=== PATIENT | female | born 1940 | race African-American/Black ===

== ENCOUNTER 2017-03-05 02:45 | Observation (INO) ==
[2017-03-05 03:45] LABS: ALBUMIN 4.1 g/dL (3.5-5.0); CALCIUM 7.1 mg/dL (8.8-10.2); POTASSIUM 4.3 mmol/L (3.5-5.1); TOTAL BILIRUBIN 0.5 mg/dL (0.20-1.00); TOTAL PROTEIN 7.7 g/dL (6.3-8.3)
[2017-03-05 04:09] LABS: BASO% 0.3 % (0.0-0.8); EOS# 0.27 X1000 (0.0-0.7); EOS% 4.6 % (0.0-10.0); HEMATOCRIT 31.4 % (37.0-47.0); HEMOGLOBIN 10.2 g/dL (12.0-16.0); IMM GRAN# 0.02 X1000 (0.0-0.04); IMM GRAN% 0.3 % (0.0-0.5); LYMPH# 1.51 X1000 (1.2-3.4); LYMPH% 25.7 % (20.5-51.1); MANUAL DIFF NEEDED? NO; MCH 35.5 PG (27-31); MCHC 32.5 g/dL (33-37); MCV 109.4 FL (81-99); MONO# 0.63 X1000 (0.11-0.59); MONO% 10.7 % (1.7-9.3); MPV 9.9 FL (7.4-10.4); NEUT% 58.4 % (42.2-75.2); PLT 158 X1000 (130-400); RBC 2.87 XMIL (4.2-5.4)
--- NOTE | 2017-03-05 04:17 | PROVIDER DOCUMENTATION ---
This chart was entered by Chastity Villatoro Scribe, acting as scribe for Sanjay Vo MD. HPI-Respiratory General - General Chief Complaint: Cold Symptoms Stated Complaint: SOB Time Seen by Provider: 03/05/17 02:49 Source: patient Allergies/Adverse Reactions: Patient Allergies Allergy/AdvReac Type Severity Reaction Status Date / Time morphine AdvReac "makes me Verified 02/22/16 04:59 crazy" Home Medications: Home Medication List Medication Instructions Recorded Confirmed Last Taken Type Cinacalcet HCl [Sensipar] 60 mg PO QAM 02/20/16 02/22/16 02/21/16 History Gabapentin 300 mg PO TID 02/20/16 02/22/16 02/21/16 History Insulin Aspart Prot/Insuln Asp 28 unit SQ QPM 02/20/16 02/22/16 02/21/16 History [Novolog Mix 70-30 Flexpen Syrn] Insulin Aspart Prot/Insuln Asp 38 unit SQ QAM 02/20/16 02/22/16 02/21/16 History [Novolog Mix 70-30 Flexpen Syrn] Methocarbamol [Robaxin-750] 750 mg PO BID PRN #120 tablet 02/20/16 02/22/16 Rx Metoprolol [Lopressor] 25 mg PO QAM 02/20/16 02/22/16 02/21/16 History Naproxen [Naprosyn] 500 mg PO BID #60 tablet 02/20/16 02/22/16 02/21/16 Rx Pantoprazole [Protonix] 40 mg PO QAM 02/20/16 02/22/16 02/21/16 History Sevelamer Carbonate [Renvela] 800 mg PO TID 02/20/16 02/22/16 02/21/16 History Simvastatin 40 mg PO QHS 02/20/16 02/22/16 02/21/16 History Hydrocodone/Acetaminophen [Lortab 1 each PO Q4-6H PRN PRN #20 tablet 02/22/16 Unknown Rx 10-325 mg Tablet] - History of Present Illness-Resp Nature of Presenting Problem: 76 year old F presents to the ED with a cc of shortness of breath with an onset of this afternoon. Pt states that it is worse with lying flat. Pt also c/o a cough. Severity in ED: reports: mild Onset/Duration: reports: this evening Timing: reports: still present Cough Quality/Degree: reports: mild Current Respiratory Medication Therapy: Initiated see nurses note Associated Symptoms: reports: cough, shortness of breath Similar Symptoms Previously?: No Recently seen or treated by another doctor?: No Review of Systems - Adult - REVIEW OF SYSTEMS - ADULT Constitutional: denies: chills, fever Eyes: reports: no symptoms reported Ears, Nose, Mouth & Throat: reports: no symptoms reported Cardiovascular: denies: chest pain, palpitations Respiratory: reports: cough, shortness of breath Gastrointestinal: denies: abdominal pain, nausea, vomiting Genitourinary: reports: no symptoms reported Musculoskeletal: reports: no symptoms reported Integumentary: reports: no symptoms reported Neurological: reports: no symptoms reported Psychiatric: reports: no symptoms reported Endocrine: reports: no symptoms reported Hematologic/Lymphatic: reports: no symptoms reported Allergic/Immunologic: reports: no symptoms reported All Other Systems: Reviewed and Negative Past History - Adult - PAST MEDICAL HISTORY-ADULT Review of Records: reports: Nursing Assessment Review, Medications Reviewed Major Childhood Illnesses: reports: denies history Cardiovascular: reports: denies history Respiratory: reports: sleep apnea Genitourinary: reports: dialysis Neurological: reports: denies history Endocrine/Immune: reports: Diabetes - PRIOR SURGERIES/PROCEDURES Surgical/Procedure History: reports: cholecystectomy, pacemaker, hysterectomy, indwelling device, orthopedic (extremity) - IMMUNIZATION STATUS Childhood Immunizations: See Nurse Assessment Flu Vaccine: See Nurse Assessment - FAMILY HISTORY Family History: reviewed, not pertinent - SOCIAL HISTORY Smoking: non-smoker Substance Use: none/never Alcohol Use Frequency: never Physical Exam-General - PHYSICAL EXAM-ADULT Initial Vital Signs Reviewed: Yes - CONSTITUTIONAL General Appearance: appears well, alert, no apparent distress, obese - RESPIRATORY Respiratory: chest non-tender, lungs clear, normal breath sounds - CARDIOVASCULAR Cardiovascular: normal peripheral pulses, regular rate, rhythm, no edema - SKIN Integumentary: normal color, normal turgor, warm/dry - PSYCHIATRIC Psych/Mental Status: normal mood/affect, normal thought content, normal thought process, oriented x 3 Progress - PLAN OF CARE/RESULTS Progress/Plan/Lab Results: Vital Signs - 8 hr // 02:58 Temperature 97.9 F Pulse Rate 60 Respiratory Rate 15 Blood Pressure 140/116 O2 Sat by Pulse Oximetry 100 Laboratory Results - last 24 hr 03/05/17 03/05/17 03/05/17 03:10 03:10 03:10 WBC 5.87 RBC 2.87 L Hgb 10.2 L Hct 31.4 L MCV 109.4 H MCH 35.5 H MCHC 32.5 L RDW Std Deviation 13.1 Plt Count 158 MPV 9.9 Immature Gran % (Auto) 0.3 Neut % (Auto) 58.4 Lymph % (Auto) 25.7 [place] % (Auto) 10.7 H Eos % (Auto) 4.6 Baso % (Auto) 0.3 Immature Gran # (Auto) 0.02 Neut # (Auto) 3.42 Lymph # (Auto) 1.51 [place] # (Auto) 0.63 H Eos # (Auto) 0.27 Baso # (Auto) 0.02 Sodium 144 Potassium 4.3 Chloride 99 Carbon Dioxide 31 Anion Gap 14 BUN 26 H Creatinine 6.0 H Estimated GFR/1.73 m2 8 BUN/Creatinine Ratio 4 Glucose 101 Calculated Osmolality 292 Calcium 7.1 L Total Bilirubin 0.50 AST 16 ALT 18 Alkaline Phosphatase 95 Creatine Kinase 88 Troponin T 0.150 H Total Protein 7.7 Albumin 4.1 Globulin 3.6 Albumin/Globulin Ratio 1.1 Orders Category Date Time Status CHEST-PORTABLE [RAD] Stat Exams 03/05/17 02:54 Taken CBC WITH ELECTRONIC DIFF [HEME] Stat Lab 03/05/17 03:10 Completed CK PROFILE [SP CHEM] Stat Lab 03/05/17 03:10 Completed CMP [COMPREHENSIVE METABOLIC PANEL] [CHEM] Stat Lab 03/05/17 03:10 Completed TROPONIN T Stat Lab 03/05/17 03:10 Completed EKG [EKG] Stat Ther 03/05/17 02:56 Ordered Result Diagrams: 03/05/17 03:10 03/05/17 03:10 - REASSESSMENT Reassessment #1 Time Reassessed: 04:16 (pt feels better when sitting upright. She does not make any urine. Will keep until she can get dialysis then shoulde be able to go home) Status: improving - EKG 1 Time of EKG reading by physician:: 03:15 EKG Interpretation (*Must complete 3 of following elements*): Abnormal Rate: 60 Rhythm: paced - XRAY 1 XRAY Study: Chest Impression: Abnormal (cardiomegaly, moderate fluid overload) Departure - Departure Date of Disposition Decision: 03/05/17 Time of Disposition Decision: 04:15 DIAGNOSIS: ESRD (end stage renal disease) Fluid overload Qualifiers: Hypervolemia type: other Qualified Code(s): E87.79 - Other fluid overload Disposition: ADMITTED INPATIENT 09 Certified Medical Emergency: Emergent Condition: Fair - Critical Care Note This patient required my direct & personal management of CC.: No This chart was documented by the indicated scribe, (Chastity Villatoro Scribe) and accurately reflects the services I performed and decisions made by me, Sanjay Vo MD, as attested by the provider's signature.
--- NOTE | 2017-03-05 06:14 | Diag Imaging Result Doc PS360 ---
EXAM: CHEST-PORTABLE HISTORY: sob TECHNIQUE: Portable chest COMPARISON: 07/11/2010 FINDINGS: The patient has a right-sided pacemaker. The heart remains enlarged. There are central vascular distention. No pleural effusions identified. No consolidation. IMPRESSION: Cardiomegaly with pulmonary edema. Follow-up PA and lateral recommended. Electronically signed by Bruno Gauthier 03/05/2017 6:12 AM
[2017-03-05] MEDS ORDERED: NORCO-10 PO PRN (06:26)
[2017-03-05] MEDS ORDERED: ZOFRAN IV PRN (06:28)
[2017-03-05] MEDS ORDERED: TIGHT: 0.2 ML/HR MISC PRN (06:51)
[2017-03-05] MEDS ORDERED: HEPARIN IV PRN (06:51)
[2017-03-05] MEDS ORDERED: NS 2,000 ML MISC PRN (06:51)
[2017-03-05 08:37] LABS: INR 0.98; PROTIME 10.3 Seconds (9.2-11.7); PTT 22.3 Seconds (22.0-36.0)
[2017-03-05] MEDS ORDERED: HEPARIN SUBQ SCH (09:00)
[2017-03-05] MEDS ORDERED: EPOGEN SUBQ SCH (09:00)
[2017-03-05] MEDS: NOVOLOG MIX 70/30 SUBQ SCH (09:16)
[2017-03-05] MEDS ORDERED: NS 2,000 ML ONE (11:09)
[2017-03-05] MEDS ORDERED: HEPARIN ONE (11:09)
--- NOTE | 2017-03-05 11:46 | CONSULTATION ---
DATE OF CONSULTATION: 03/05/2017 INDICATION: Elevated troponin, fluid overload. HISTORY OF PRESENT ILLNESS: Ms. Solano is a 76-year-old black female, who normally follows with Dr. Garcia. 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 She presented for evaluation of shortness of breath. She reports compliance with her dialysis sessions, but seemingly she has not been able to achieve her dry weight recently despite reportedly complete treatments. She comes in weighing 5 kg over her usual dry weight. She normally follows with nephrology in [place]. She has not had any chest pain. She has been dealing with shortness of breath, as well as what sounds like orthopnea. She reports complying with her low sodium, low fluid intake diet. PAST MEDICAL HISTORY: 1. Hypertension. 2. Diabetes. 3. End-stage renal disease on dialysis for over 10 years. She also has a history of renal cell cancer status post right nephrectomy. 4. Morbid obesity with obstructive sleep apnea. 5. Myocardial perfusion imaging in July 2015 demonstrating a low risk study with a history of mild coronary disease by cardiac catheterization in [place] several years ago. SOCIAL HISTORY: No current tobacco use. FAMILY HISTORY: Significant for hypertension. REVIEW OF SYSTEMS: A 10 system review of systems is negative, except for those things mentioned in the HPI. PHYSICAL EXAMINATION: Vital Signs: Afebrile, heart rate 66, blood pressure 134/54. General: No acute distress. HEENT: Oropharynx is moist. Normal dentition. Eye examination shows pink conjunctivae, white sclerae. Neck: Examination shows no obvious thyromegaly or thyroid tenderness. Cardiovascular: She is in a regular rate and rhythm. She has no obvious murmurs. She has no S3. She has no lower extremity edema. Chest: Exam sounds relatively clear to auscultation bilaterally. She has no increased work of breathing. Abdomen: Soft, nontender, nondistended. She has no obvious organomegaly. Skin Exam: Warm and dry throughout without any rashes. Neurological: Moving all extremities well. Cranial nerves 2-12 are intact without any sensation deficits. Psychiatric: Alert and oriented, pleasant. Normal mood and affect. PERTINENT DATA: She had an EKG that shows an AV paced rhythm at a rate of 60 beats per minute. Chest x-ray shows cardiomegaly with pulmonary edema present. Laboratory data shows white count of 5.9, hematocrit 31, platelet count 158. INR 0.98. Sodium 144, potassium 4.3, BUN 26, creatinine 6. Troponin has been positive since admission at 0.15 initially and 0.1474 hours later. ASSESSMENT: Volume overload likely secondary to inadequate hemodialysis. PLAN: Her troponin elevation is likely secondary to end-stage renal disease, as well as volume overload. We will continue to trend this. We will repeat an echo which I believe has already been ordered. Her EKG has not shown any abnormalities, although it is a paced rhythm. I would recommend continued hemodialysis as they are already progressing with. cc: Jarvis Llanes MD
[2017-03-05] MEDS ORDERED: NS 1,000 ML ONE (12:19)
--- NOTE | 2017-03-05 13:48 | HISTORY AND PHYSICAL ---
PRIMARY CARE PROVIDER: Dr. Hari Nguyen. SPOT WASHER: Dr. Tomy Colon. BLIND EYELETTER: Dr. Josh Garcia. CHIEF COMPLAINT: Shortness of breath. HISTORY OF PRESENT ILLNESS: Ms. Solano is a 76-year-old -[place] female with past medical history of end-stage renal disease, currently on hemodialysis on Mondays, Wednesdays, and Fridays. Hypertension, hyperlipidemia, diabetes mellitus, asthma and pacemaker placement. Though the patient states that she does not know why she had to have a pacemaker placed. The patient states that she received her last dialysis treatment on Wednesday. She denied missing any treatments prior to this. She did receive her full treatment. She states that for approximately 3 days now she has had shortness of breath. This has increasingly gotten worse. She states now at this time that she is unable to lay flat and this does become worse when she tries to lay down. She denies any edema or swelling though does appear to have some facial puffiness noted. The patient states that she does not produce any urine. She also denies any previous known history of congestive heart failure. The patient states that she does have occasional dizziness when she stands up too fast, though this has not been recent or has not worsened recently. She does report that she has had a recent cough but this is nonproductive. She denies any fever, body aches, or chills. She denies any headache, chest pain, abdominal pain, nausea, vomiting, or diarrhea. She denies any hematochezia or melena. She denies any pain, numbness tingling, or swelling in extremities. Upon evaluation in the ER, the patient was found to have some shortness of breath. Chest x-ray did show cardiomegaly with some pulmonary edema. This could be secondary to the patient's end- stage renal disease with some fluid volume overload though we could not find a recent echocardiogram that the patient had performed. She did also have an elevated troponin of 0.125. This could be related to her renal disease. She denies any chest pain. EKG showed an AV dual paced rhythm at a rate of 60. We will admit her for further treatment evaluation of her fluid volume overload which we will consult Dr. Gagnon, and we will also further evaluate this for any cardiac abnormalities as well. REVIEW OF SYSTEM: A 12-point review of systems was conducted with the patient and all were negative except for pertinent positives mentioned above HPI. PAST MEDICAL HISTORY: 1. Asthma. 2. Diabetes mellitus. 3. End-stage renal disease, on hemodialysis on Mondays, Wednesdays, and Fridays. Followed by Dr. Colon. 4. Pacemaker placement. 5. Hypertension. 6. Hyperlipidemia. 7. Chronic back pain. 8. Spinal stenosis. PAST SURGICAL HISTORY: 1. Pacemaker placement. 2. Cholecystectomy. 3. Hysterectomy. 4. Right rotator cuff repair. 5. Right arm dialysis shunt placement. 6. Left knee surgery. 7. Cataract surgery. 8. Recent left eye surgery. SOCIAL HISTORY: The patient denies any past or present tobacco, alcohol, or illicit drug use. FAMILY HISTORY: She reports that her mother had a history of diabetes mellitus. Her father has a history of hypertension. She reports that she has one sister who also has kidney disease and is on dialysis. She also has a history of breast cancer. ALLERGIES: Patient reports allergies to morphine. HOME MEDICATIONS: 1. Simvastatin 40 mg p.o. at bedtime. 2. Renvela 800 mg p.o. t.i.d. 3. Protonix 40 mg p.o. q.a.m. 4. Lopressor 25 mg p.o. q.a.m. 5. NovoLog 70/30 mix flex pen 35 units subcutaneous q.a.m. 6. NovoLog 70/30 mix FlexPen 28 units subcutaneous every evening. 7. [place] 10 mg p.o. q.4-6 hours for pain. 8. Gabapentin 300 mg p.o. t.i.d. 9. Sensipar 30 mg p.o. q.a.m. LABORATORY RESULTS: White blood cell count 5.8, hemoglobin 10.2, hematocrit 31.4. Platelet count is 158,000. PT 10.3, INR 0.9, PTT is 22.3. Sodium 144, potassium 4.3, chloride 9 . Bicarb is 31. BUN 26, creatinine 6 with GFR of 8, glucose 101. Calcium 7.1, phosphorus 3.3, magnesium 2. Liver function tests within normal limits. CK 88. Troponin is 0.15. EKG showed an AV dual paced rhythm at a rate of 16. Chest x-ray showed cardiomegaly with pulmonary edema. A followup PA and lateral was recommended as per Radiology. PHYSICAL EXAMINATION: VITAL SIGNS: Temperature 98.2 degrees, heart rate 83, respirations 16, blood pressure is 116/44, oxygen saturation 100% on room air. GENERAL: Ms. Solano is a pleasant 76-year-old -[place] female who is resting on the ER stretcher. She is in no acute distress. She was awake, alert, and able to answer all questions appropriately. HEENT: Head is atraumatic, normocephalic. Right pupil was equal, round, and reactive to light and was 3 mm. Left pupil was slightly misshapen and was reactive to light and was 3 mm. The patient did mention that she just had recent left eye surgery. Subconjunctivae were pink. Oral mucosa is moist. Oropharynx clear. NECK: Supple. Trachea midline. No obvious JVD noted upon examination. CARDIOVASCULAR: Patient has normal S1, S2. No murmurs, gallops, rubs appreciated with a regular rate and rhythm. PULMONARY: Patient has symmetrical chest expansion bilaterally. Lung sounds are clear to auscultation in bilateral full posadas. ABDOMEN: Soft. Does not appear to be distended, though the patient does have a protuberant abdomen noted. Bowel sounds were present in all 4 quadrants and were normoactive. EXTREMITIES: No cyanosis, clubbing, or edema noted. Pulse, motor and sensory were intact in all extremities. Pedal pulses were 2+ bilaterally. INTEGUMENTARY: The patient's skin color is normal for her . Was dry and intact. No lesions or sores noted. NEUROLOGICAL: Patient was alert and oriented x4. Cranial nerves 2-12 are grossly intact. ASSESSMENT AND PLAN: 1. Fluid volume overload. The patient does have some pulmonary edema noted on her chest x-ray but, at this time, she is in no respiratory distress. She is maintaining adequate oxygen saturation on room air from 98%-100%. We have placed orders for consult with Dr. Gagnon this morning. We will await her evaluation and further recommendations. Wednesday is her normal dialysis day as well. 2. End-stage renal disease, on hemodialysis. As previously mentioned, we have placed a consult with Dr. Gagnon and will await his evaluation and further recommendations. 3. Hypertension. We will continue the patient's metoprolol. Her blood pressure is within normal limits at this time. 4. Diabetes mellitus. We will continue her insulin NovoLog 70/30 mix subcutaneously q.a.m. and every evening and will monitor her glucose levels with fingerstick blood sugars. 5. Hyperlipidemia. We will continue her Simvastatin. 6. Deep venous thrombosis prophylaxis. She will be placed on heparin 5000 units subcutaneously q.12 hour. Further orders and recommendations pending hospital course, diagnostic studies, and physician evaluation. Though we suspect the patient does have fluid volume overload. We will continue her to rule her out for any further cardiac involvement we will do a repeat troponin we also placed order for a echocardiogram this morning as well as a consult with Dr. Garcia, the patient's taker down. She will be placed on the medical floor telemetry. She will have vital signs q.6 hours. We will do strict intake and output. She will be on a diabetic renal diet, and we will continue to monitor. Dictated by CHERISE Martin for Adrian Romano MD cc: Adrian Romano MD
[2017-03-05] MEDS: RENAGEL PO SCH ×3 (14:24→21:40)
[2017-03-05] MEDS: PROTONIX PO SCH (14:24)
[2017-03-05] MEDS: SENSIPAR PO SCH (14:24)
[2017-03-05] MEDS: NEURONTIN PO SCH ×3 (14:24→21:49)
[2017-03-05] MEDS: LOPRESSOR PO SCH (14:25)
--- NOTE | 2017-03-05 14:52 | CONSULTATION ---
DATE OF CONSULTATION: 03/05/2017 REASON FOR CONSULTATION: Assistance with management of ESRD. HISTORY OF PRESENT ILLNESS: Ms. Solano is a 76-year-old black female with ESRD secondary to diabetes. She also has hypertension, obesity, hyperlipidemia, chronic pain syndrome. She states she was in her usual health until approximately Wednesday, since which time she has had episodic PND. Last night she was awakened from sleep around 2 in the morning with shortness of breath. She did not have diaphoresis, chest pain, nausea, vomiting, or other associated symptoms. Symptoms improved and she laid down again only to be forced to get up again with shortness of breath and she therefore presented to the emergency room for evaluation. Her initial evaluation found O2 saturation 100%. Blood pressure was elevated at 140/116. Chest x-ray collected at the time disclosed cardiomegaly with pulmonary edema. She is better this morning. She is able to converse without dyspnea. She has not exerted herself. PAST MEDICAL HISTORY: As above. HOME MEDICATIONS: Cinacalcet, gabapentin, insulin, methocarbamol, naproxen, pantoprazole, sevelamer, simvastatin, hydrocodone. ALLERGIES: Morphine. SOCIAL HISTORY: She dialyzes at the [facility] in [place]. No alcohol or tobacco. FAMILY HISTORY: Noncontributory. PHYSICAL EXAMINATION: Vital Signs: Blood pressure 134/54, heart rate 66, respirations 15, afebrile. General: She is an obese woman, sitting erect, no distress. Skin: Warm and dry. HEENT: Conjunctivae are pink and moist. Pupils are equal and round. Oropharynx is clear and edentulous. Tongue is normal. Neck: Supple. Trachea is midline. Neck veins are not visible. Heart: Regular with a gallop. No murmurs or rubs. Lungs: Have equal breath sounds. No crackles are audible. No wheezes. No accessory muscle use. Abdomen: Soft, nontender, obese. Bowel sounds are present. Extremities: Have trace edema. No clubbing or cyanosis. Neurologic: Nonfocal. IMPRESSION: End-stage kidney disease. She will have her routine dialysis today. If she is 4 kg or more above her dry weight then we will simply target her outpatient dry weight. If she has less than 4 L then we will attempt to lower her dry weight 2 kg if possible and then reassess her symptoms. Her electrolytes and acid-base are in target. Her anemia is in target. Will continue to dose with erythropoietin while she is an inpatient. cc: Nicolas Gagnon MD
[2017-03-05] MEDS: HEPARIN SUBQ SCH ×2 (16:17→21:41)
--- NOTE | 2017-03-05 19:42 | ECHO REPORT ---
ORDER DATE: 03/05/2017 MEASUREMENTS: Left ventricular end-diastolic was 5.1, end-systolic diameter 3.5, posterior wall thickness 1.3, septal thickness 1.9, left atrium 4.9, aortic root 3.4. SUMMARY: 1. Technically difficult study due to limited acoustic window quality in a morbidly obese patient. Intravenous echo contrast agent Definity was utilized to improve endocardial definition for purposes of assessing left ventricular systolic function and wall motion. 2. Very mild aortic valve sclerosis demonstrated with normal aortic valve opening evident. Mitral, tricuspid and pulmonic valves are without evidence of structural abnormality with very mild mitral regurgitation, mild tricuspid regurgitation, and very mild pulmonic insufficiency. The estimated systolic PA pressure by Doppler is 60 mmHg. The aortic root is normal in size. 3. Normal left ventricular chamber size with moderate concentric left hypertrophy is demonstrated. Estimated left ventricular ejection fraction appears to be at least 55%. There is mild hypokinesis of apical septum. No other wall motion abnormalities can be appreciated. The right ventricle appears mildly enlarged with mildly reduced right ventricular systolic function. Left atrium is moderately enlarged. Right atrium is mildly enlarged. Linear echodensity in the right atrium possibly represents catheter tip but is not well demonstrated. 4. No pericardial effusion. 5. Inferior vena cava not seen. CONCLUSIONS: 1. Technically difficult study. 2. Mild mitral regurgitation. 3. Mild tricuspid regurgitation with moderate pulmonary hypertension by Doppler with estimated systolic PA pressure of at least 60 mmHg. 4. Moderate concentric left hypertrophy with estimated left ejection fraction at least 55%. 5. Moderate left atrial enlargement and mild right atrial enlargement. 6. Mild right ventricular enlargement with mildly reduced right ventricular systolic function. cc: Alfredo Murillo MD
[2017-03-05] MEDS ORDERED: NOVOLOG MIX 70/30 SUBQ SCH (21:00)
[2017-03-05] MEDS ORDERED: ZOCOR PO SCH (21:00)
[2017-03-06 06:37] LABS: BASO% 0.6 % (0.0-0.8); EOS# 0.18 X1000 (0.0-0.7); EOS% 2.7 % (0.0-10.0); HEMATOCRIT 29.8 % (37.0-47.0); HEMOGLOBIN 9.5 g/dL (12.0-16.0); IMM GRAN# 0.04 X1000 (0.0-0.04); IMM GRAN% 0.6 % (0.0-0.5); LYMPH# 1.55 X1000 (1.2-3.4); LYMPH% 23.2 % (20.5-51.1); MANUAL DIFF NEEDED? NO; MCH 34.7 PG (27-31); MCHC 31.9 g/dL (33-37); MCV 108.8 FL (81-99); MONO# 0.76 X1000 (0.11-0.59); MONO% 11.4 % (1.7-9.3); MPV 9.9 FL (7.4-10.4); NEUT% 61.5 % (42.2-75.2); PLT 143 X1000 (130-400); RBC 2.74 XMIL (4.2-5.4)
[2017-03-06 06:56] LABS: ALBUMIN 3.8 g/dL (3.5-5.0); CALCIUM 7.3 mg/dL (8.8-10.2); POTASSIUM 4.2 mmol/L (3.5-5.1)
[2017-03-06] MEDS ORDERED: INSULIN PEN NEEDLES ONE (07:34)
[2017-03-06] MEDS: NEURONTIN PO SCH ×2 (08:31→12:43)
[2017-03-06] MEDS: LOPRESSOR PO SCH (08:31)
[2017-03-06] MEDS: PROTONIX PO SCH (08:31)
[2017-03-06] MEDS: RENAGEL PO SCH ×2 (08:31→12:43)
[2017-03-06] MEDS: SENSIPAR PO SCH (08:31)
[2017-03-06] MEDS: HEPARIN SUBQ SCH (08:32)
[2017-03-06] MEDS: NOVOLOG MIX 70/30 SUBQ SCH (08:32)
[2017-03-06 08:47] VITALS: BP 109/64
--- NOTE | 2017-03-07 06:13 | DISCHARGE SUMMARY ---
ADMISSION DATE: 03/05/2017 DISCHARGE DATE: 03/06/2017 DISCHARGE DIAGNOSES: 1. Fluid volume overload. 2. End-stage renal disease, on hemodialysis. 3. Hypertension. 4. Diabetes mellitus. 5. Hyperlipidemia. CONSULTS: Nephrology department and cardiology department. PROCEDURES PERFORMED: Hemodialysis dated 03/05/2017. Echocardiogram dated 03/05/2017 with the following conclusions: Technically difficult study, mild mitral regurgitation, mild tricuspid regurgitation with moderate pulmonary hypertension with estimated systolic PA or pulmonary artery pressure of at least 60 mmHg, moderate concentric left hypertrophy with estimated ejection fraction of at least 55%, moderate left atrial enlargement with mild right atrial enlargement, mild right ventricular enlargement with mildly reduced right ventricular systolic function. HOSPITAL COURSE: This is a 76-year-old, female with a past medical history of asthma, diabetes mellitus, end-stage renal disease on hemodialysis Wednesday, Wednesday, and Wednesday, pacemaker placement, hypertension, hyperlipidemia, chronic back pain, and spinal stenosis. Came to the emergency department with a chief complaint of 3 days of shortness of breath that has been getting worse to the point that she was not able to lay flat. The patient states that she does not produce any urine. She denies any history of CHF. The patient also states that she did have occasional dizziness when she when stood up too fast. In the emergency department, she was found to have some shortness of breath. Chest x-ray showed cardiomegaly with pulmonary edema. Nephrology department was consulted, as well as cardiology department. She received hemodialysis. More than 3 L of fluid were removed. Today, this patient is doing much better. She is not complaining of shortness of breath or chest pain. She is completely asymptomatic. This is why I decided to discharge this patient with a followup by her ore crushing dust collector, Dr. Colon, and followup with her magnet valve assembler, Dr. Garcia. PHYSICAL EXAMINATION: Vital Signs: Temperature 97.6 degrees, pulse 60, respiratory rate 15, blood pressure 109/64, oxygen saturation 100% on room air. HEENT: Head normocephalic. No trauma. PERRLA. Neck: Supple. No JVD. No masses. Central trachea. Chest: Mild rales at the bases. Otherwise clear to auscultation. Abdomen: Soft, obese, nontender, nondistended. No hepatosplenomegaly. Extremities: No edema. No clubbing. No cyanosis. Neurological Examination: The patient was alert and oriented x3. No focal neurological deficits. LABORATORY DATA: WBC 6.6, hemoglobin 9.5, hematocrit 29.8, platelets 143,000. Sodium 144, potassium 4.2, chloride 99, bicarbonate 30, BUN 30, creatinine 5.8, glucose 69, calcium 7.3. FOLLOWUP: Followup by nephrology department, Dr. Colon, and followup with cardiology department, Dr. Josh Garcia. She needs to get dialysis as scheduled on Wednesday, Wednesday, and Wednesday. DISCHARGE MEDICATIONS: Simvastatin 40 mg p.o. at bedtime, sevelamer 800 mg p.o. t.i.d., pantoprazole 40 mg p.o. q.a.m., metoprolol 25 mg p.o. q.a.m., NovoLog 70/30 with 28 units subcutaneously q.p.m. and 35 units q.a.m., gabapentin 300 mg p.o. t.i.d., Sensipar 30 mg p.o. q.a.m., Lortab 10 one tablet p.o. q.4 to q.6 hours p.r.n., and Epogen 10,000 units subcutaneously Wednesday, Wednesday, and Wednesday. DIET: We recommended low-salt, diabetic diet. TIME DISCHARGING THIS PATIENT: 35 minutes. cc: Jones Rabago MD
== END 2017-03-06 13:27 | disposition home or self-care (01) ==
LOC: 3N 02:45 → ED 02:45 → SUATTDRO 04:45 → 3N 05:17
PROVIDERS: ATTEND Internal Medicine

== ENCOUNTER 2017-03-17 11:44 | Inpatient (IN) ==
[2017-03-17] MEDS ORDERED: ASPIRIN PO STA (12:17)
[2017-03-17] MEDS: DOPAMINE 400 MG/D5W 400 MG/500 ML IV.SOLN IV SCH ×5 (12:31→18:23)
--- NOTE | 2017-03-17 12:47 | Diag Imaging Result Doc PS360 ---
CHEST-PORTABLE - 03/17/2017 INDICATION: dyspnea TECHNIQUE: COMPARISON: 03/05/2017 FINDINGS: Stable right-sided pacemaker. There is worsening cardiomegaly and severe pulmonary vascular congestion. There may be some early pulmonary edema as well. No pneumothorax or large effusion. IMPRESSION: Worsening cardiomegaly and pulmonary edema. Electronically signed by Jordin Lind 03/17/2017 12:45 PM
[2017-03-17] MEDS ORDERED: ZOFRAN IV ONE (12:53)
[2017-03-17 13:13] LABS: BASO% 0.3 % (0.0-0.8); EOS# 0.25 X1000 (0.0-0.7); EOS% 3.4 % (0.0-10.0); HEMATOCRIT 32.4 % (37.0-47.0); HEMOGLOBIN 10.7 g/dL (12.0-16.0); IMM GRAN# 0.05 X1000 (0.0-0.04); IMM GRAN% 0.7 % (0.0-0.5); INR 1.03; LYMPH# 2.11 X1000 (1.2-3.4); LYMPH% 28.7 % (20.5-51.1); MANUAL DIFF NEEDED? NO; MCV 109.1 FL (81-99); MONO# 0.91 X1000 (0.11-0.59); MONO% 12.4 % (1.7-9.3); MPV 9.9 FL (7.4-10.4); NEUT% 54.5 % (42.2-75.2); PLT 166 X1000 (130-400); PROTIME 10.8 Seconds (9.2-11.7); PTT 31.8 Seconds (22.0-36.0); RBC 2.97 XMIL (4.2-5.4)
[2017-03-17 13:21] LABS: CALCIUM 7.8 mg/dL (8.8-10.2); MAGNESIUM 1.7 mg/dL (1.5-2.7); POTASSIUM 3.2 mmol/L (3.5-5.1); TOTAL BILIRUBIN 0.84 mg/dL (0.20-1.00); TOTAL PROTEIN 7.3 g/dL (6.3-8.3)
--- NOTE | 2017-03-17 14:48 | PROVIDER DOCUMENTATION ---
This chart was entered by Andreas Rao Scribe, acting as scribe for Mickie Cardoza Jr, MD. HPI-Critical Care - General Chief Complaint: Altered Mental Status Stated Complaint: UNRESPONSIVE Time Seen by Provider: 03/17/17 11:52 Patient arrived via EMS?: Yes Unable to obtain history due to:: urgency Allergies/Adverse Reactions: Allergies Allergy/AdvReac Type Severity Reaction Status Date / Time adhesive AdvReac Unknown Verified 03/17/17 13:36 hydrochlorothiazide AdvReac Unknown Verified 03/17/17 13:37 [From Diovan HCT] morphine AdvReac "makes me Verified 03/17/17 12:52 crazy" valsartan [From Diovan HCT] AdvReac Unknown Verified 03/17/17 13:37 Home Medications: Home Medication List Medication Instructions Recorded Confirmed Last Taken Type Cinacalcet HCl [Sensipar] 30 mg PO QAM 02/20/16 03/17/17 03/04/17 09:00 History Gabapentin 300 mg PO TID 02/20/16 03/17/17 03/04/17 21:00 History Insulin Aspart Prot/Insuln Asp 25 unit SQ QPM 02/20/16 03/17/17 03/04/17 21:00 History [Novolog Mix 70-30 Flexpen Syrn] Insulin Aspart Prot/Insuln Asp 35 unit SQ QAM 02/20/16 03/17/17 03/04/17 09:00 History [Novolog Mix 70-30 Flexpen Syrn] Metoprolol [Lopressor] 25 mg PO QAM 02/20/16 03/17/17 03/04/17 09:00 History Pantoprazole [Protonix] 40 mg PO QAM 02/20/16 03/17/17 03/04/17 07:00 History Sevelamer Carbonate [Renvela] 800 mg PO TID 02/20/16 03/17/17 03/04/17 21:00 History Simvastatin 40 mg PO QHS 02/20/16 03/17/17 03/04/17 21:00 History Epoetin Harlan [Epogen] 10,000 unit SUBQ [id number]@0900 vial 03/06/17 03/17/17 Unknown Rx Hydrocodone/Acetaminophen [Lortab 1 each PO Q4-6H PRN PRN #20 tablet 03/06/17 Unknown Rx 10-325 mg Tablet] Bimatoprost 0.01% Oph Solution 1 drop OPH HS 03/17/17 03/17/17 Unknown History [Lumigan 0.01% Oph Solution] Brinzolamide/Brimonidine Tart 8 ml OP DAILY 03/17/17 03/17/17 Unknown History [Simbrinza 1%-0.2% Eye Drops] Budesonide/Formoterol Fumarate 10.2 gm IH DAILY 03/17/17 03/17/17 Unknown History [Symbicort 160-4.5 Mcg Inhaler] Ibandronate [Boniva] 150 mg PO [id number] 03/17/17 03/17/17 Unknown History Ketorolac 0.4% Ophth Soln [Acular 1 drop 4XDAY PRN PRN 03/17/17 03/17/17 Unknown History Ls 0.4% Ophth Soln] Moxifloxacin 0.5% Oph Soln 1 drop TID 03/17/17 03/17/17 Unknown History [Vigamox 0.5% Oph Soln] Prednisolone 1% Oph Susp [Pred 1 drop TID 03/17/17 03/17/17 Unknown History Forte 1% Oph Suspension] - History of Present Illness-Critical Care Nature of Presenting Problem: Patient is a 76 y/o F that presents to the ER via EMS from local dialysis clinic after having an unresponsive episode and chest pain that radiated to her left arm and neck. patient was hypotensive, was started on Dopamine drip en route. Patient is confused and having n/v. Hard to get complete history and HPI from patient due to urgency and condition Location of Pain/Injury: reports: chest Quality of Pain: reports: tightness Severity in ED: reports: severe Onset/Duration: reports: abrupt, 1/2 hour ago Timing: reports: still present, improving EMS Initial Findings:: unresponsive Pre-hospital Treatment: Initiated other (dopamine) Associated Symptoms: reports: arm pain, back/neck pain, chest pain, nausea, vomiting, weakness. denies: diarrhea, dizziness, fatigue, fever/chills, shortness of breath Loss of Consciousness: brief (seconds) Improves Condition (Modifying Factors): improves with: nothing Nitro Today/Relief: no nitro taken today Aspirin Treatment Today: no aspirin today Similar Symptoms Previously?: No Recently Seen Here or By Another Healthcare Provider: Yes Review of Systems - Adult - REVIEW OF SYSTEMS - ADULT ROS:: unobtainable per condition Constitutional: reports: no symptoms reported Eyes: reports: no symptoms reported Ears, Nose, Mouth & Throat: denies: ear pain, epistaxis, sinus problem, throat pain Cardiovascular: reports: chest pain. denies: palpitations, syncope Respiratory: denies: cough, shortness of breath, wheezing Gastrointestinal: reports: nausea, vomiting. denies: hematemesis, diarrhea, rectal bleeding Genitourinary: reports: no symptoms reported Musculoskeletal: reports: muscle weakness. denies: back pain, joint pain, neck pain Integumentary: reports: no symptoms reported Neurological: denies: dizziness/vertigo, headache/migraines, seizure, syncope Psychiatric: reports: no symptoms reported Endocrine: reports: no symptoms reported Hematologic/Lymphatic: reports: no symptoms reported Allergic/Immunologic: reports: no symptoms reported All Other Systems: Reviewed and Negative Past History - Adult - PAST MEDICAL HISTORY-ADULT Review of Records: reports: Old Records Reviewed, Nursing Assessment Review, Medications Reviewed Cardiovascular: reports: CAD, HTN, hyperlipidemia, pacemaker Respiratory: reports: COPD, sleep apnea Gastrointestinal: reports: GERD Genitourinary: reports: dialysis (MWF), ESRD, kidney disease Endocrine/Immune: reports: Diabetes Diabetes Type: Type 2 Diabetes controlled by:: Insulin Dependent - PRIOR SURGERIES/PROCEDURES Surgical/Procedure History: reports: cholecystectomy, pacemaker, hysterectomy, indwelling device (av fistula), orthopedic (extremity) - IMMUNIZATION STATUS Childhood Immunizations: See Nurse Assessment Flu Vaccine: See Nurse Assessment - FAMILY HISTORY Family History: reviewed, not pertinent - SOCIAL HISTORY Smoking: non-smoker Living Situation: family Physical Exam-General - PHYSICAL EXAM-ADULT Exam Limited by: Patient Condition Initial Vital Signs Reviewed: Yes - CONSTITUTIONAL General Appearance: moderate distress, severe distress, anxious - EYES Eyes: PERRL/EOMI, other (redness conjunctivae) - HEAD, EARS, NOSE, MOUTH & THROAT HENMT: normocephalic/atraumatic, moist mucous membranes, normal ENT inspection - NECK Neck: full range of motion, normal inspection. negative: lymphadenopathy - RESPIRATORY Respiratory: no accessory muscle use, respiratory distress, decreased breath sounds - CARDIOVASCULAR Cardiovascular: regular rate, rhythm, no gallop, no JVD - GASTROINTESTINAL (ABDOMEN) Abdominal Exam: normal bowel sounds, non tender, soft, no organomegaly, no pulsatile mass - MUSCULOSKELETAL Extremity: normal range of motion, normal inspection, no pedal edema, pelvis stable - SKIN Integumentary: normal color, warm/dry - NEUROLOGIC Neurologic: negative: aphasia, facial droop, focal weakness, motor weakness - PSYCHIATRIC Psych/Mental Status: anxious, other (confused) Progress - PLAN OF CARE/RESULTS Progress/Plan/Lab Results: Vital Signs - 8 hr 03/17/17 12:38 03/17/17 13:59 Pulse Rate 82 93 H Respiratory Rate 24 30 H Blood Pressure 82/40 104/54 O2 Sat by Pulse Oximetry 100 100 Laboratory Results - last 24 hr 03/17/17 03/17/17 03/17/17 12:00 12:00 12:00 WBC 7.35 RBC 2.97 L Hgb 10.7 L Hct 32.4 L MCV 109.1 H MCH 36.0 H MCHC 33.0 RDW Std Deviation 14.6 H Plt Count 166 MPV 9.9 Immature Gran % (Auto) 0.7 H Neut % (Auto) 54.5 Lymph % (Auto) 28.7 Cedar % (Auto) 12.4 H Eos % (Auto) 3.4 Baso % (Auto) 0.3 Immature Gran # (Auto) 0.05 H Neut # (Auto) 4.01 Lymph # (Auto) 2.11 Cedar # (Auto) 0.91 H Eos # (Auto) 0.25 Baso # (Auto) 0.02 PT INR PTT (Actin FS) Sodium 142 Potassium 3.2 L Chloride 98 Carbon Dioxide 30 Anion Gap 14 BUN 12 Creatinine 3.2 H Estimated GFR/1.73 m2 17 BUN/Creatinine Ratio 4 Glucose 110 H Calculated Osmolality 284 Calcium 7.8 L Magnesium 1.7 Total Bilirubin 0.84 AST 12 ALT 11 Alkaline Phosphatase 87 Creatine Kinase 71 Troponin T [id number]-M-Tcwvjgpiaoy Pept 2337 H Total Protein 7.3 Albumin 4.0 Globulin 3.3 Albumin/Globulin Ratio 1.2 03/17/17 03/17/17 12:00 12:00 WBC RBC Hgb Hct MCV MCH MCHC RDW Std Deviation Plt Count MPV Immature Gran % (Auto) Neut % (Auto) Lymph % (Auto) Cedar % (Auto) Eos % (Auto) Baso % (Auto) Immature Gran # (Auto) Neut # (Auto) Lymph # (Auto) Cedar # (Auto) Eos # (Auto) Baso # (Auto) PT 10.8 INR 1.03 PTT (Actin FS) 31.8 Sodium Potassium Chloride Carbon Dioxide Anion Gap BUN Creatinine Estimated GFR/1.73 m2 BUN/Creatinine Ratio Glucose Calculated Osmolality Calcium Magnesium Total Bilirubin AST ALT Alkaline Phosphatase Creatine Kinase Troponin T 0.158 H [id number]-Sfyvkzjhdjg Pept Total Protein Albumin Globulin Albumin/Globulin Ratio Orders Category Date Time Status Cardiac Monitoring DIRECTED Care 03/17/17 12:18 Active Oxygen Therapy- ED Nursing DIRECTED Care 03/17/17 12:18 Active Saline Loc NOW Care 03/17/17 12:18 Active CHEST-PORTABLE [RAD] Stat Exams 03/17/17 12:19 Completed CHEST-PORTABLE [RAD] Stat Exams 03/17/17 14:43 Ordered CBC WITH ELECTRONIC DIFF [HEME] Stat Lab 03/17/17 12:00 Completed CK PROFILE [SP CHEM] Stat Lab 03/17/17 12:00 Completed COMPREHENSIVE METABOLIC PANEL [CHEM] Stat Lab 03/17/17 12:00 Completed MAGNESIUM [CHEM] Stat Lab 03/17/17 12:00 Completed PRO B-NATRIURETIC PEPTIDE Stat Lab 03/17/17 12:00 Completed PROTIME WITH INR [COAG] Stat Lab 03/17/17 12:00 Completed PTT [COAG] Stat Lab 03/17/17 12:00 Completed TROPONIN T Stat Lab 03/17/17 12:00 Completed Aspirin Med 03/17/17 12:17 Discontinued 325 mg PO STAT STA Dopamine 400 mg/D5w Med 03/17/17 12:05 Active 400 mg in 500 ml IV Per Protocol Ondansetron [Zofran] Med 03/17/17 12:53 Discontinued 4 mg IV NOW ONE EKG [EKG] Stat Ther 03/17/17 12:18 Ordered Transfer/Admit Order [TRANSFER] Routine Transfer 03/17/17 14:45 Ordered Result Diagrams: 03/17/17 12:00 03/17/17 12:00 - EKG 1 Time of EKG reading by physician:: 11:47 EKG Read and Signed by:: Mickie Cardoza Jr EKG Interpretation (*Must complete 3 of following elements*): Abnormal Rate: 80 Rhythm: AV dual-paced rhythm with occasional PVC QRS: PVC's ST Wave: normal Comments: non-diagnostic EKG - XRAY 1 XRAY Study: Chest Impression: Abnormal XRAY Interpretation: worsening cmg and pulmonary edema - CONSULTS/PCP/HOSPITALIST Notification Time Discussed: 14:47 Consult Disposition: Admit (I spoke with CURTIS Arriaga for hospitalist) Procedures - CENTRAL LINE Time-Out Verification Completed?: Yes Central Line Lumen: triple Catheter: English: 7 Central Line Procedure Prep: Hand Hygeine Performed, Kit Utilized, Chloraprep, Sterile Body Drape Placed, Antibiotic-coated Catheter Used Patient Position (To prevent Air Embolism): Trendelenburg (SC/IJ) Central Line Position: internal jugular (R) Ultrasound Guided?: Yes Hat, mask, sterile gown, & sterile gloves worn by physician?: Yes Site scrubbed vigorously for 30 seconds? (Groin: 2 min): Yes Anesthetic: 1%, Lidocaine w/ Epinephrine Volume of Anesthetic (ml's): 5 Post Procedure: Sutured in place, Sterile field maintained, BioPatch placed, Sterile dressing applied, Blood aspirated from each lumen, Placement verfied by XRAY Complications: none Departure - Departure Date of Disposition Decision: 03/17/17 Time of Disposition Decision: 14:47 DIAGNOSIS: ESRD (end stage renal disease), Elevated troponin, Macrocytic anemia Pulmonary edema Qualifiers: Chronicity: chronic Qualified Code(s): J81.1 - Chronic pulmonary edema Disposition: ADMITTED INPATIENT 09 Certified Medical Emergency: Emergent Condition: Poor Referrals and Follow-Ups: None,PCP [Primary Care Provider] - - Critical Care Note This patient required my direct & personal management of CC.: Yes Total Time (mins): 90 Critical Care Statement: This patient required my direct personal management to treat or rule out processes, the absence of which, could potentiallly result in sudden, clinically significant life or limb threatening deterioration. Attestation - Physician/ CHANTELL Attestation The physician spent face to face time with patient:: Yes Advanced Practice Provider documentation review:: Supervising physician onsite and consulted in the evaluation and care of this patient. The physician did have a face to face encounter with the patient. This chart was documented by the indicated scribe, (Andreas Rao, Lora) and accurately reflects the services I performed and decisions made by me, Mickie Cardoza Jr, MD, as attested by the provider's signature.
--- NOTE | 2017-03-17 15:12 | EKG Report ---
Test Performed on : 03/17/2017 11:47:57 AM Test Reason : CHEST PAIN Blood Pressure : / mmHG Vent. Rate : 080 BPM Atrial Rate : 080 BPM P-R Int : 192 ms QRS Dur : 216 ms QT Int : 516 ms P-R-T Axes : 000 -79 093 degrees QTc Int : 595 ms AV dual-paced rhythm with occasional premature ventricular complexes. Abnormal ECG When compared with ECG of 11-JUL-2010 10:53, premature ventricular complexes. are now present Vent. rate has increased BY 20 BPM Unconfirmed Result
--- NOTE | 2017-03-17 15:15 | Diag Imaging Result Doc PS360 ---
EXAM: CHEST-PORTABLE HISTORY: central line placement TECHNIQUE: Single view of the chest was performed portably. COMPARISON: 03/17/2017 FINDINGS: There is cardiomegaly, right sided pacemaker, and a right internal jugular central venous catheter. The tip is suboptimally visualized but is thought to be at the caval atrial junction. No focal consolidation is identified. There is mild vascular congestion. There are postsurgical changes left shoulder. IMPRESSION: Cardiomegaly. Satisfactory central line placement. No acute cardiopulmonary abnormality is identified. Electronically signed by Cheryl Rosario 03/17/2017 3:13 PM
[2017-03-17] MEDS ORDERED: APRESOLINE IV PRN (15:55)
[2017-03-17] MEDS ORDERED: HUMALOG SUBQ SCH (16:00)
--- NOTE | 2017-03-17 16:38 | Diag Imaging Result Doc PS360 ---
EXAM: HEAD W/O CONTRAST HISTORY: ams TECHNIQUE: CT brain without. Dose reduction protocol. COMPARISON: 10/08/2010 FINDINGS: No parenchymal hemorrhage. No epidural or subdural hematoma. No subarachnoid hemorrhage. No mass identified on this noncontrasted exam. There are chronic microvascular ischemic changes. Questionable small hypodense area in the left cerebellum. No hydrocephalus. There is opacification of the left maxillary sinus. There is prominent mucus in the prior exam as well. IMPRESSION: 1.No hemorrhage 2.Chronic left maxillary sinusitis 3.Chronic microvascular ischemic changes 4.Possible small recent infarct in the left cerebellum. Follow-up images or an MRI may be beneficial. Electronically signed by Bruno Gauthier 03/17/2017 4:36 PM
--- NOTE | 2017-03-17 16:45 | HISTORY AND PHYSICAL ---
CHIEF COMPLAINT: Chest pain. HISTORY OF PRESENT ILLNESS: Ms. oSlano is a 76-year-old female who was discharged from our service on 03/06/17. She has a history of ESRD on hemodialysis, and multiple other comorbidities. She was at dialysis today when she became hypotensive and began experiencing chest pain. The patient at this time is quite a bit lethargic and history is difficult to obtain. However, she does state that she had a midsternal chest pain radiating to her jaw and left arm sometime during dialysis. She was transported to the ER via ambulance. In the ambulance she required dopamine for blood pressure support as her systolic was in the 70s. When she got to the ER. Her EKG showed a paced rhythm. Labs shows a macrocytic anemia, mildly elevated troponin with a normal CK, and a creatinine of 3.2. Her chest x-ray shows pulmonary edema and cardiomegaly. Her last admission here, she had an echocardiogram done, which showed normal EF with mild TR and elevated PA pressures. Given her lethargy, we are going to check a head CT, ABG and ammonia level and admit her to the ICU. She is on vasopressors. PAST MEDICAL HISTORY: 1. ESRD, on hemodialysis Wednesday, Wednesday, Wednesday. Followed by Dr. Colon. 2. Chronic pain. 3. Diabetes mellitus. 4. Hypertension. 5. Hyperlipidemia. 6. Spinal stenosis. 7. Asthma. 8. High-degree AV block, requiring pacemaker. SURGICAL HISTORY: Pacemaker placement, cholecystectomy, hysterectomy, rotator cuff repair, right arm dialysis shunt, left knee surgery, cataract surgery, recent left eye surgery. SOCIAL HISTORY: Patient does not smoke, drink or use illicit substances. FAMILY HISTORY: Significant for ESRD, breast cancer, diabetes and hypertension. ALLERGIES: Morphine. Adhesives. Hydrochlorothiazide. Morphine. Valsartan. HOME MEDICATIONS: Bimatoprost 0.01% ophthalmic 1 drop OP at bedtime, Brinzolamide eyedrops as directed, Symbicort 160-4.5 mcg inhaler daily as directed, Sensipar 30 mg a.m., Epogen 10,000 units subcutaneous as directed, gabapentin 300 mg p.o. t.i.d., [place] every 4-6 hours as needed for pain, Boniva 150 mg p.o. q.12 weeks, NovoLog 70/30 35 units subcutaneous a.m., NovoLog 70/30 25 units subcutaneous p.m., Toradol eyedrops as directed, Lopressor 25 mg a.m., Vigamox 1 t.i.d. as directed, Protonix 40 mg a.m., prednisolone eyedrops t.i.d. as directed, Renvela 800 mg p.o. t.i.d., simvastatin 40 mg p.o. at bedtime. REVIEW OF SYSTEMS: A 14 point review of systems obtained and found to be negative with the exception of the HPI. PHYSICAL EXAMINATION: VITAL SIGNS: Blood pressure is 104/54, heart rate is 73, respiratory rate with 22, O2 saturation 100% on room air. GENERAL: This is a morbidly obese female, lying in hospital bed lethargic. NEUROLOGIC: The patient is lethargic, opens eyes to verbal stimulus. Her speech is slurred, but she is able to answer most orientation questions correctly. HEENT: Head is atraumatic and normocephalic. Pupils are irregular bilaterally and minimally reactive to light, however, please note the patient has had previous eye surgery. Oral mucosa is moist. Trachea is midline. CHEST: Crackles bilaterally. CARDIOVASCULAR: Regular rate and rhythm. GASTROINTESTINAL: Soft, nondistended, nontender. Bowel sounds positive. EXTREMITIES: No edema. Pulses diminished, but palpable bilaterally. DIAGNOSTIC DATA: WBC 7.35, hemoglobin 10.7, hematocrit 32.4. MCV 109.1, platelet count 166,000. INR 1.03, sodium 142, potassium 3.2, chloride 98, CO2 30, anion gap 14, BUN 12, creatinine 3.2, glucose 110, calcium 7.8, magnesium 1.7, total bilirubin 0.84. AST 12, ALT 11, alkaline phosphatase 87, troponin 0.158, proBNP 2337. Albumin 4. ASSESSMENT AND PLAN: 1. Syncope. Will monitor the patient on telemetry and consult neurology. May need a cardiology consult. 2. Hypotension: Likely volume mediated during dialysis. She has gotten some fluids and she is on vasopressors. We will continue this as necessary, trend her enzymes and defer overall volume management to Nephrology via hemodialysis. 3. Altered mental status: Unclear as to etiology. We are going to check a drug screen, head CT, ABG and ammonia. Hold off on any of her narcotics for now. 4. Chest pain: Continue to trend her enzymes. So far she only has elevated troponin with a normal CK which is likely volume related on top of ESRD. We will continue to trend enzymes and follow telemetry, consult Cardiology if needed. 5. Endstage renal disease: Nephrology has already seen the patient, continue dialysis and volume management per their orders. 6. Macrocytic anemia: We are going to check thyroid function and iron studies. 7. Chronic pain. Again, holding on medications that would cause her to be hypotensive or lethargic. 8. Diabetes mellitus: We will add pattern sugars and sliding scale insulin. 9. Deep vein thrombosis prophylaxis. Will start heparin. 10.GI prophylaxis. Will start the patient on IV protonix. Dictated by CHERISE Mason for Janina White MD cc: CHERISE Mason MD [facility]
[2017-03-17] MEDS: TYLENOL PO PRN (16:56)
[2017-03-17] MEDS: POTASSIUM CHLORIDE 40 MEQ/SWI 40 MEQ/100 ML IVPB IV ONE ×2 (16:56→17:23)
[2017-03-17] MEDS: HUMULIN R SUBQ SCH ×2 (16:57→21:11)
[2017-03-17 17:40] LABS: HEMOGLOBIN A1C 6.5 % (4.8-6.0)
[2017-03-17 17:51] LABS: AMYLASE 60 U/L (20-200); LIPASE 24 U/L (13-60)
--- NOTE | 2017-03-17 17:58 | Diag Imaging Result Doc PS360 ---
EXAM: KUB ABDOMEN INDICATION: nausea/abdominal pain TECHNIQUE: One view COMPARISON: None. FINDINGS: There is a general paucity of bowel gas. There is a small amount of bowel gas in the upper abdomen. There is no definite obstructive pattern. There is no evidence of large volume free abdominal gas. There is no evidence of organomegaly. IMPRESSION: Nonspecific general paucity of bowel gas. Electronically signed by Niles Marte 03/17/2017 5:56 PM
[2017-03-17] MEDS: DUONEB (A & A) INH SCH ×2 (19:34→23:11)
[2017-03-17] MEDS: LUMIGAN 0.01% OPH SOLUTION OPH SCH (20:08)
[2017-03-17] MEDS: HEPARIN SUBQ SCH (20:08)
[2017-03-17] MEDS: ZOCOR PO SCH (21:11)
--- NOTE | 2017-03-17 21:28 | CONSULTATION ---
DATE OF CONSULTATION: 03/17/2017 REASON FOR ADMISSION: Altered mental status with unresponsiveness. REASON FOR CONSULTATION: End-stage renal disease with assistance with medical management. CONSULTING PHYSICIAN: HISTORY OF PRESENT ILLNESS: Ms. Solano is a dialysis patient who is known to our outpatient services who has just transferred to [facility] for dialysis on spring in [place]. She has another dry folder cloth at this time and was recently receiving her dialysis treatment. It was noted that the EMS was called to the Dialysis Clinic after patient went unresponsive. She initially had chest pain that radiated to her left arm and neck. She became hypotensive. En route to [facility]'s Emergency Department, she was started on a dopamine drip per peripheral IV. She remains confused. She was having nausea and vomiting. The patient denies any fever or chills. No recent nausea, vomiting or diarrhea in the last 24 hours. She does not remember what had taken place at the Dialysis Unit. PAST MEDICAL HISTORY: Positive for end-stage renal disease with hemodialysis on Wednesday, Wednesday, Wednesday. She has coronary artery disease, hypertension, hyperlipidemia, she has a previous pacemaker placement, COPD, sleep apnea, GERD, diabetes mellitus, type 2 , anemia of chronic disease, osteodystrophy of chronic disease. PREVIOUS SURGICAL HISTORY: Patient has had a cholecystectomy, pacemaker insertion, hysterectomy, indwelling AV fistula, and an orthopedic repair to her right lower extremity. FAMILY HISTORY: Reviewed. No pertinent positives. She has several sisters to our on hemodialysis secondary to hypertension and diabetes. SOCIAL HISTORY: She lives with her family. She is a nonsmoker. No alcohol. No illicit drug use. CURRENT ALLERGIES: Adhesive tape, hydrochlorothiazide, morphine, valsartan. HOME MEDICATIONS: Renvela, simvastatin, Epogen, [place], [place] eye drops, Simbrinza eyedrops, Symbicort, Boniva, ketorolac, moxifloxacin eyedrops, prednisolone eyedrops. She also receives Proteinex, Aranesp and IV iron at her outpatient clinic. She also continues on Sensipar, gabapentin, NovoLog mix pen, NovoLog mix 70/30, Lopressor. Protonix. REVIEW OF SYSTEMS: Times 10 with pertinent positives listed above in the HPI. LABORATORY: Sodium 142, potassium 3.2, chloride 98, CO2 30, BUN 12, creatinine 3.2, glucose 110. Her anion gap is 14, calcium 7.8, magnesium 1.7. Albumin of 4. White count 7.35, hemoglobin 10.7, hematocrit 32.4 with a platelet count of 166,000. Her ProTime is 10.8, INR of 1.03 with a PTT of 31.8. IMAGING: Patient has a previous chest x-ray showing pulmonary edema with right pacer intact. PHYSICAL EXAMINATION: General: This is a 76-year-old female. She is currently resting in bed. She is in mild distress. She states that she is having cramps to her right leg and her left arm continues to hurt. Vital Signs: No temperature is recorded. Her blood pressure 122/57, heart rate 95, respirations 18, this is on dopamine at 5 mcg. She is currently on room air. She is saturating at 100%. She has had 0 recorded in or out. HEENT: Normocephalic, atraumatic. Conjunctivae pink. She has CHRISTINA. Mucous membranes are moist. Neck: Supple. Trachea midline. No JVD. Cardiovascular: Regular rate and rhythm. She has a soft systolic murmur. No gallop. Lungs: Clear to auscultation anteriorly. Equal excursion on room air. Abdomen: Large, obese, soft, nontender. Positive bowel sounds. Genitourinary : Not inspected. Minimal void with dialysis assist. Extremities: She has trace pretibial edema. No clubbing or cyanosis. Fistula noted to the left upper arm. Integumentary: No rashes or lesions noted. Skin: Warm and dry. Neurological: Alert and oriented x2 to person and to place. Forgetful to most recent events. ASSESSMENT AND PLAN: 1. End-stage renal disease. Patient has had her routine dialysis treatment today. She is scheduled for 4 hours and 15 minute. She stayed for 3 hours and 15 minute. They were able to pull patient to her dry weight prior to coming off. She does not have any indications being on room air at this time. No need for any further emergent dialysis treatments. We will plan for evaluation in the a.m. 2. Electrolytes. These remain stable with mild hypokalemia. 3. Acid-base balance. This remains stable. 4. Anemia. Patient is close to target. 5. Hypotensive with a syncopal episode. Patient has a pacemaker that is intact. Cardiology has been consulted. She is currently on dopamine and to be transferred ICU bed 3. No further indications for intervention at this time. Likely related to intravascular volume depletion during HD. rg I would to thank you for allowing us to follow with this patient. Patient seen, data reviewed, discussed with Vanessa Malloy on 03/17/17. I agree with the above assessment and plan of care. rg Dictated by CHERISE Hernandez for Nicolas Gagnon MD cc: CHERISE Hernandez MD [facility]
[2017-03-17] MEDS: NEURONTIN PO SCH (21:41)
[2017-03-18] MEDS: DOPAMINE 400 MG/D5W 400 MG/500 ML IV.SOLN IV SCH ×2 (02:21→10:27)
[2017-03-18] MEDS: DUONEB (A & A) INH SCH ×6 (03:20→23:12)
[2017-03-18] MEDS: NORCO-10 PO PRN ×3 (03:21→15:18)
[2017-03-18] MEDS: ZOFRAN IV PRN ×3 (04:36→21:05)
[2017-03-18 05:24] LABS: HEMATOCRIT 33.9 % (37.0-47.0); HEMOGLOBIN 11.1 g/dL (12.0-16.0); MCH 35.6 PG (27-31); MCHC 32.7 g/dL (33-37); MCV 108.7 FL (81-99); RBC 3.12 XMIL (4.2-5.4)
[2017-03-18 05:52] LABS: IRON SATURATION 20 %; TIBC 194 ug/dL; TOTAL IRON 38 ug/dL (49-151); UNBOUND IRON 156 ug/dL (112-346)
[2017-03-18 06:03] LABS: ALBUMIN 3.7 g/dL (3.5-5.0); CALCIUM 7.6 mg/dL (8.8-10.2); POTASSIUM 4.4 mmol/L (3.5-5.1)
[2017-03-18 06:27] LABS: FERRITIN 1960 ng/mL (13-150)
[2017-03-18] MEDS ORDERED: BLISTEX MEDICATED BERRY LIP BALM TOP PRN (06:30)
--- NOTE | 2017-03-18 06:32 | EKG Report ---
Test Performed on : 03/17/2017 5:47:39 PM Test Reason : No Order in [facility] Blood Pressure : / mmHG Vent. Rate : 077 BPM Atrial Rate : 082 BPM P-R Int : 208 ms QRS Dur : 128 ms QT Int : 470 ms P-R-T Axes : 078 -55 205 degrees QTc Int : 531 ms Electronic ventricular pacemaker Abnormal ECG No previous ECGs available Nonspecific ST abnormality I and AVL Nonspecific ST depression V1 and V2 Confirmed by Ty Llanes DO ([id number]) on 03/20/2017 8:10:37 PM
[2017-03-18] MEDS: HUMULIN R SUBQ SCH ×4 (06:35→20:19)
[2017-03-18] MEDS: PROTONIX IV SCH (06:40)
[2017-03-18] MEDS ORDERED: NS 500 ML ONE (07:17)
[2017-03-18] MEDS: SENSIPAR PO SCH (08:12)
[2017-03-18] MEDS: NEURONTIN PO SCH ×3 (08:12→20:18)
[2017-03-18] MEDS: ASPIRIN EC PO SCH (08:12)
[2017-03-18] MEDS: HEPARIN SUBQ SCH ×2 (08:12→20:18)
[2017-03-18] MEDS: AZOPT 1% OPHTH SUSP OPH SCH (08:12)
[2017-03-18] MEDS: ALPHAGAN 0.2% OPHTH SOLN OPH SCH (08:12)
[2017-03-18] MEDS ORDERED: NS 500 ML IV SCH (08:38)
--- NOTE | 2017-03-18 09:26 | PROGRESS NOTE ---
DATE: 03/18/2017 SUBJECTIVE: Ms. Solano is resting quietly in bed. She states that it is difficult to get comfortable, but she denies chest pain or increased work of breathing. She continues to require dopamine. OBJECTIVE: Her most recent vital signs: Temperature 97.5 degrees, blood pressure 112/73, heart rate 67, respirations 16. She is on room air. CVP of 6. Last recorded saturation 100%. She has had 929 in. She has had 0 recorded out. LABORATORY DATA: Sodium 136, potassium 4.4, chloride 90, CO2 of 28, BUN 22, creatinine 5.6, glucose 246, her anion gap is 18, calcium 7.6. Phosphorus 3.7. Albumin is 3.7. The patient continues with elevated troponin secondary to AV fistula stick, expected value. The patient has an iron of 38, total iron binding capacity 194, saturation of 20, unsaturated binding 156, with a ferritin of 1960. Cortisol level of 9.9. White count 9.54, hemoglobin 11.1, hematocrit 33.9, with a platelet count of 152,000. Blood cultures are still currently pending. PHYSICAL EXAMINATION: General: This is a 76-year-old female. She appears in no acute distress. She is resting quietly in bed. Skin: Warm and dry. HEENT: Normocephalic, atraumatic. Conjunctivae pale. She has CHRISTINA. Mucous membranes moist. Neck: Supple. Trachea midline. No JVD determined. Cardiovascular: She has regular rate and rhythm. She has an S4. No murmur. Lungs: Clear to auscultation anteriorly. Equal excursion on room air. Abdomen: Large, round, soft, nontender. Positive bowel sounds. Extremities: She has a fistula to the right upper forearm. This is intact with good thrill. Tape is intact. No drainage noted. No edema to the lower extremities. No clubbing or cyanosis. Integumentary: No rashes or lesions evident. Neurological: Alert and oriented x3. ASSESSMENT AND PLAN: 1. End-stage renal disease. The patient had her routine dialysis treatment yesterday secondary to fluid volume overload. No dialysis today. 2. Syncopal episode. We will consult Dr. Garcia, who is her political director. We will check an echocardiogram. She has pacemaker to the left upper chest wall. We will defer to the Cardiology Team for evaluation. It is also noted that she has a central line to the right internal jugular, central venous pressure of 6. We will give her another fluid bolus of 500 mL of normal saline. 3. Electrolytes and acid-base balance. These are stable. 4. Anemia. This remains low, but stable. 5. Hypertension. This remains a problem. She remains hypotensive. She remains on dopamine for support. I would to thank you for allowing us to follow with this patient. Patient seen, data reviewed, discussed with Vanessa Malloy on 03/18/17. I agree with the above assessment and plan of care. rg Dictated by CHERISE Hernandez for Nicolas Gagnon MD cc: CHERISE Hernandez MD [facility]
--- NOTE | 2017-03-18 11:17 | CONSULTATION ---
DATE OF CONSULTATION: 03/18/2017 INDICATION: Apparent hypotension and syncope occurring while on hemodialysis. HISTORY OF PRESENT ILLNESS: Ms. Solano is a pleasant, 76-year-old, black female with a history of end-stage renal disease on Wednesday, Wednesday, Wednesday dialysis. Followed by nephrology in [place]. Apparently, she was getting her usual treatment yesterday. She had been taking her normal oral intake. No nausea or vomiting. She has had no recent febrile illnesses. She reported that she felt well preceding dialysis. At some point during the session, she began feeling very lightheaded and she thinks she may have passed out. She is not sure of the events after that and has felt quite lethargic and sleepy since then. She was brought into the ER. Evaluated and since that time has been on dopamine for blood pressure support. She has not had any chest pain but she has apparently had episodic palpitations over the last several days. She does have a permanent pacemaker, implanted several years ago in [place] apparently for symptomatic bradycardia. PAST MEDICAL HISTORY: 1. Significant for symptomatic bradycardia, status post [place] device implant several years ago. 2. History of coronary artery disease, reportedly mild per catheterization done in [place]. Last stress test was in 2014 and was low risk with a normal EF. 3. End-stage renal disease, followed by nephrology at [place]. She gets Wednesday, Wednesday, Wednesday hemodialysis. 4. Type 2 diabetes. 5. Hypertension. 6. Hyperlipidemia. 7. Sleep apnea with morbid obesity. 8. Reflux disease. 9. Chronic back pain. SOCIAL HISTORY: She does not smoke, drink, or use alcohol. FAMILY HISTORY: Significant for end-stage renal disease, breast cancer, diabetes, and hypertension. REVIEW OF SYSTEMS: A 10 system review of systems is negative except for those mentioned in the HPI. PHYSICAL EXAMINATION: Vital Signs: She has been afebrile during this hospitalization. Her heart rates seem to be predominantly in the 60s to 80s. Her blood pressure most recently was 112/73. She does remain on dopamine for blood pressure support. Her Is and Os are positive 929 mL. Generally: Lethargic, morbidly obese. She awakens to answer questions but quickly falls back to sleep. She does seem to be appropriate in answering her questions and is quite pleasant. HEENT: Oropharynx is moist. Poor dentition. Eye examination shows pink conjunctivae and white sclerae. Neck: Examination shows no obvious thyromegaly or thyroid tenderness. Cardiovascular: She is in a regular rate and rhythm. She has no murmurs. She has no S3 present. She has no lower extremity edema. She has warm and well-perfused lower extremities. Chest: Examination is clear bilaterally. No increased work of breathing. Abdomen: Soft, nontender, and nondistended. She has no obvious organomegaly. Skin Examination: Warm and dry throughout without any rashes. Neurological: Moving all extremities well. Cranial nerves 2-12 are intact without sensation deficits. Psychiatric: She seems somewhat lethargic but is able to answer all questions. She seems appropriate. PERTINENT DATA: She had an echocardiogram at the end of February, showing an EF of at least 55%, although it was somewhat difficult study secondary to poor windows. She had moderate LVH, moderate left atrial enlargement, mild right atrial enlargement, mild right ventricular enlargement with a mild reduction in her RV systolic function. She had a KUB demonstrating a nonspecific bowel-gas pattern. She had a chest x-ray done yesterday demonstrating no acute cardiopulmonary abnormalities. That was on the followup film. She did have worsening cardiomegaly and pulmonary edema on the preceding x-ray. She had a head CT showing a possible small recent infarct in the left cerebellum. Her electrocardiogram on presentation yesterday showed a ventricular paced rhythm. It looks like it is also atrial paced. Subsequent EKG today shows a sinus rate of 77 beats per minute with ventricular paced complexes intermittently. Laboratory data shows a white count of 9.5, hematocrit 33.9, platelet count 152,000. Sodium 136, potassium 4.4, BUN 22, creatinine 5.6. Cardiac enzymes are positive and have been positive on her last check in February. She was 0.137-0.15 on her last checks in February. Here, she is 0.158-0.166, essentially no change and flat. ASSESSMENT: Syncopal episode occurring on dialysis with subsequent hypotension and CT scan findings concerning for a possible cerebellar infarct. PLAN: We are awaiting neurology input. It would be reasonable to consider a cardiac catheterization in this patient if there is no obvious source of the episode yesterday that is found. Certainly, the patient could have left main disease causing hypotension on dialysis. However, if the patient is found to have a cerebellar stroke, I would likely defer any cardiac catheterization decision to in the future. She is getting a slight fluids presently as she does have a low CVP and continues to be mildly hypotensive. She is on aspirin presently, which I would continue. We are awaiting neurology. We will repeat an echocardiogram to evaluate for possible pericardial effusion. cc: Jarvis Llanes MD
[2017-03-18 12:15] LABS: HEPATITIS PROFILE ACUTE SEE COMMENTS
[2017-03-18] MEDS: TYLENOL PO PRN (12:55)
--- NOTE | 2017-03-18 14:21 | CONSULTATION ---
DATE OF CONSULTATION: 03/18/2017 LOCATION: She is in the ICU bed 3. HISTORY OF PRESENT ILLNESS: Ms. Solano is 76 years old and she had an episode of chest pain and shortness of breath with transient altered awareness or possibly altered consciousness during dialysis yesterday. History from the patient is that she just felt bad, hard for her to describe more precisely and then she noted tightness in her chest traveling toward the left shoulder. She was short of breath. She had a sense that she was about to lose consciousness and then she was not aware of things for a short time. When she recovered, there was no focal neurologic feature. She feels much better today. She reports no history of diagnosed stroke. Workup here includes noncontrast CT of the head on admission, reported to show usual changes in the cerebral hemispheres and question of small recent left cerebellar infarction. This is difficult to commercial lines account executive given the limitations of CT in identifying posterior fossa problems. MRI is not an option because of her pacemaker. Lab work showed anemia, elevated creatinine and glucose. She has not had urine drug screen reported. Her home medicines include p.r.n. hydrocodone. Vital signs record shows systolic blood pressure initially 82, later 120s to 140s. Heart rate was initially 80s and 90s, later stable in the 60s. She has been afebrile. There is reported past history of end-stage renal disease, hemodialysis, diabetes mellitus, hypertension, dyslipidemia, pacemaker placed as above. She was discharged from the hospital about 12 days before this admission after coming in with shortness of breath and diagnosis of volume overload then. She reported on admission then that she was sometimes dizzy on standing up quickly. PHYSICAL EXAMINATION: On exam now, she is awake, alert, attentive, appropriate , oriented. I observed her chewing and swallowing, some Jell-O without difficulty. Speech is not dysarthric. Language function is intact. I did not test her cognitive function thoroughly. Head and neck are unremarkable. She has limited visual field on the right and the left, may be more impaired on the left but I could not identify a definite homonymous defect. Visual acuity also seems poor, but not tested thoroughly. Facial motility is symmetric. Gag is intact. Tongue is midline. She can hear. She has some discomfort and restricted range of motion at the left shoulder. Allowing for that, there is no focal motor deficit. Muscle tone is symmetric. She did well on [id number] testing bilaterally. She had some limitation at the left shoulder but otherwise did well with [id number] testing bilaterally. I did not test her gait. IMPRESSION: 1. Recent episode sounds like a cardiac or cardiopulmonary event, probably not a primary neurologic event. She has responded to hydration. 2. 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 If this is a small acute cerebellar infarction, I do not find definite associated clinical deficit. This may be an old lesion or may not be an area of infarction at all, given CT limitations as above. Unfortunately, MRI is not an option. I do not have any urgent suggestion from a neurologic standpoint. I encouraged her to remain hydrated, to take her medicines carefully, and to keep up with her hemodialysis schedule. If she has more neurologic problems, I will be glad to see her again. Thanks for asking me to see her today. cc: Riccardo Clifford III, MD MTDD
--- NOTE | 2017-03-18 17:48 | PROGRESS NOTE ---
DATE: 03/18/2017 SUBJECTIVE: The patient is awake and alert this morning. She does complain of palpitations that have been going on for several weeks. She also reports nausea that started yesterday. She remains on a dopamine drip. OBJECTIVE: Vital Signs: Temperature 97 degrees, blood pressure 119/96, heart rate 65 ,respirations 18, O2 saturations 100% on room air. General: This is a morbidly obese female, lying in bed, in no acute distress. HEENT: Head normocephalic, atraumatic. Heart: S1, S2. Normal. Regular rate and rhythm. Lungs: Equal air entry bilaterally. No crackles. No wheezing. No rales. Abdomen: Positive bowel sounds. Soft, obese, nontender, nondistended. Extremities: No edema. No cyanosis. No calf tenderness. Neurologic: The patient is alert and oriented x3. No focal neurologic deficits noted. LABORATORY DATA: White blood cell count 9.5, hemoglobin 11, hematocrit 33 platelets 152,000. Sodium 136, potassium 4.4, chloride 90, CO2 28, BUN 22, creatinine 5.6, glucose 246, calcium 7.6, phosphorus 3.7. ASSESSMENT AND PLAN: 1. Syncope. Cardiology as well as Neurology have been consulted. We will await further recommendations after their evaluation. 2. Hypotension. We will attempt to wean the patient off of the dopamine drip. 3. Nausea with abdominal pain. GI has been consulted. We will order a gastric emptying study to be done tomorrow. We will continue on IV Protonix. 4. End-stage renal disease. Management as per the supervisor keymodule assembly. 5. Morbid obesity. Aware. 6. Uncontrolled insulin-dependent diabetes mellitus. Continue on sliding scale insulin. 7. Anemia. The patient's hemoglobin and hematocrit are stable. 8. Deep vein thrombosis prophylaxis. Continue on heparin. cc: Janina White MD MTDD
[2017-03-18] MEDS: ZOCOR PO SCH (20:17)
[2017-03-18] MEDS: LUMIGAN 0.01% OPH SOLUTION OPH SCH (20:18)
[2017-03-18] MEDS ORDERED: NEURONTIN PO SCH (21:20)
[2017-03-19] MEDS: DOPAMINE 400 MG/D5W 400 MG/500 ML IV.SOLN IV SCH ×2 (00:55→20:29)
[2017-03-19] MEDS: DUONEB (A & A) INH SCH ×6 (03:06→23:08)
--- NOTE | 2017-03-19 04:28 | CONSULTATION ---
DATE OF CONSULTATION: 03/18/2017 REFERRING PHYSICIAN: Janina White M.D. PRIMARY CARE PHYSICIAN: Hari Nguyen M.D. PRIMARY HIDE MEASURING MACHINE OPERATOR: Nicolas Gagnon M.D. INDICATION FOR CONSULTATION: 1. Nausea with vomiting. 2. Epigastric pain. 3. Atypical chest pain. HISTORY OF PRESENT ILLNESS: The patient is a 76-year-old female who has a history of end-stage renal disease on hemodialysis every Wednesday, Wednesday, and Wednesday. She was at dialysis on 03/17/2017, when she became hypotensive and began experiencing chest pain. She also became quite lethargic. She apparently describes the pain was radiating into her left jaw and her left arm during dialysis. She was transported to [facility] emergency room by ambulance. En route, she was noted to be significantly hypotensive and required a dopamine drip for blood pressure support. Since admission, she has had several episodes of nausea with vomiting. She complains of epigastric pain and nausea. We are asked to perform endoscopic evaluation in light of her persistent symptoms. Of note, on last admission, she had an echocardiogram which showed a normal ejection fraction, mild tricuspid regurgitation, and elevated PA pressures. She is currently requiring pressor support. She awaits cardiac evaluation. PAST MEDICAL HISTORY: 1. End-stage renal disease, requiring hemodialysis on Wednesday, Wednesday, and Wednesday. Followed by Dr. Colon. 2. Chronic pain. 3. Diabetes mellitus. 4. Hypertension. 5. Hyperlipidemia. 6. Spinal stenosis. 7. Asthma. 8. High degree AV block, requiring a pacemaker. 9. Central morbid obesity. PAST SURGERY HISTORY: 1. Cardiac pacemaker placement. 2. Cholecystectomy. 3. Hysterectomy. 4. Rotator cuff repair. 5. Right upper extremity dialysis shunt. 6. Left knee surgery. 7. Cataract surgery. 8. Left eye surgery. SOCIAL HISTORY: Negative for alcohol, tobacco, or recreational drug use. FAMILY HISTORY: Negative for colon cancer. She notes a history of end-stage renal disease, breast cancer, diabetes, and hypertension. MEDICATION ALLERGIES: 1. Morphine. 2. Adhesive. 3. Hydrochlorothiazide. 4. Valsartan. HOME MEDICATIONS: 1. Bimatoprost ophthalmic drops. 2. Brinzolamide eyedrops. 3. Symbicort. 4. Sensipar. 5. Epogen. 6. Gabapentin. 7. [place]. 8. Boniva. 9. NovoLog. 10. Toradol. 11. Lopressor. 12. Vigamox. 13. Protonix. 14. Prednisolone. 15. Renvela. 16. Simvastatin. REVIEW OF SYSTEMS: Remarkable for epigastric pain that starts in the epigastrium and radiates to her upper back. She is able to distinguish this pain from the cardiac chest pain which radiates into her left arm. PHYSICAL EXAMINATION: General: The patient is morbidly obese, but in no acute distress. She is resting comfortably in the bed. Vital Signs: Her blood pressure is 112/73, pulse is 66, respirations 17, temperature of 97.5. HEENT: Negative for jaundice. Her oropharyngeal mucosa membranes are dry. Chest Wall: On the anterior chest wall, she has a cardiac pacemaker in the left anterior chest wall. Pulmonary: Lungs are clear to auscultation, with normal expiratory effort. Cardiovascular: Reveals regular rate and rhythm, with no gallops or rubs. Abdominal: Notable for moderate epigastric tenderness, with no rebound or guarding. Extremities: Negative for cyanosis and clubbing. OBJECTIVE DATA: Remarkable for hemoglobin of 11.1, with hematocrit of 33.9, and a white count of 9.54. She has 152,000 platelets. Sodium is 136, potassium 4.4, chloride 90, CO2 28, BUN 22, creatinine 5.6, with a glucose of 247. Calcium is 7.6, phosphorus 3.7. Albumin is 3.8, B12 was 455, folate is 4.6, and a cortisol was 9.9. Her iron is 38, with a ferritin of 1960. IMPRESSION: 1. Nausea with vomiting. 2. Epigastric pain. 3. Iron deficiency anemia. 4. Folate deficiency. 5. Chest pain. 6. Central morbid obesity. RECOMMENDATION: 1. Ideally, it would be reasonable to consider an EGD for further evaluation of the nausea with vomiting and epigastric pain. However, she has not completed her cardiac clearance. We initially placed her on the schedule today for an EGD, but per Cardiology, we will need to postpone any endoscopic intervention until such time that she has had a cardiac cath and is cleared from a Cardiology perspective. 2. In the meantime, I recommend checking a gastric emptying study, as she is diabetic and has end- stage renal disease. 3. Continue Protonix 40 mg q.24 hours. 4. Please monitor serial hemoglobin and hematocrit to assess for bleeding. 5. Begin folic acid 1 mg daily. 6. Additional recommendations to follow based on her clinical course, once she has achieved clearance by Cardiology. cc: MD Janina Glasgow MD Reginald D. Gladish, MD Kirk L. Jackson, MD MTDD
[2017-03-19] MEDS ORDERED: VANCOMYCIN IV PER PHARMACY MISC SCH (04:30)
--- NOTE | 2017-03-19 04:44 | ECHO REPORT ---
ORDER DATE: 03/18/2017 SUMMARY: 1. Limited followup echocardiography obtained to follow up pericardial effusion. 2. Aortic valve is without structural abnormality and opens adequately on 2-dimensional images. Mitral valve without structural abnormality. Tricuspid and pulmonic valves are without structural abnormality, with trace tricuspid regurgitation. Estimated systolic PA pressure by Doppler is 45-50 mmHg. The aortic root is normal in size. 3. Normal left ventricular chamber size, with mild concentric left hypertrophy suggested. Estimated left ejection fraction appears to be at least 70%. No regional wall motion abnormalities are evident. Left atrium, right atrium, right ventricle are normal in size, with preserved right ventricular systolic function. 4. Very small pericardial effusion is evident. There are no echocardiographic markers for tamponade physiology. 5. Appearance of inferior vena cava suggests normal central venous pressure. cc: MD Jarvis Leon MD
[2017-03-19 05:06] LABS: HEMATOCRIT 31.3 % (37.0-47.0); HEMOGLOBIN 10.2 g/dL (12.0-16.0); MCH 36.2 PG (27-31); MCHC 32.6 g/dL (33-37); MPV 9.9 FL (7.4-10.4); RBC 2.82 XMIL (4.2-5.4)
[2017-03-19 05:47] LABS: ALBUMIN 3.9 g/dL (3.5-5.0); POTASSIUM 4.5 mmol/L (3.5-5.1)
[2017-03-19] MEDS ORDERED: VANCOMYCIN 1 GM/NS 1 GM/250 ML IVPB IV ONE (06:00)
[2017-03-19] MEDS: SODIUM CHLORIDE 0.9% INJ SCH (06:04)
[2017-03-19] MEDS: PROTONIX IV SCH (06:04)
[2017-03-19] MEDS: HUMULIN R SUBQ SCH ×4 (06:05→20:28)
[2017-03-19 06:09] LABS: CALCIUM 9.9 mg/dL (8.8-10.2)
[2017-03-19] MEDS ORDERED: VANCOMYCIN 1 GM/NS 1 GM/250 ML IVPB IV SCH (07:00)
[2017-03-19] MEDS ORDERED: NS 2,000 ML MISC PRN (07:05)
[2017-03-19] MEDS ORDERED: TIGHT: 0.2 ML/HR MISC PRN (07:05)
[2017-03-19] MEDS ORDERED: HEPARIN IV PRN (07:05)
[2017-03-19] MEDS ORDERED: EPOGEN SUBQ ONE (09:06)
--- NOTE | 2017-03-19 09:29 | PROGRESS NOTE ---
DATE: 03/19/2017 SUBJECTIVE: She is having a nuclear medicine study this morning looking at gastric emptying. She is uncomfortable and somewhat short of breath. OBJECTIVE: Vital Signs: Blood pressure 83/37, heart rate 60, respirations 14, afebrile. Intake 2.3 L, output 0. General: No acute distress. Skin: Warm and dry. Conjunctivae are pink. Neck: Neck veins are not visible. Heart: Regular. Lungs: Have equal breath sounds. No crackles. Abdomen: Soft, nontender. Bowel sounds present. Extremities: No edema. LABORATORY/DIAGNOSTIC DATA: Sodium 137, potassium 4.5, chloride 91, bicarbonate 26, BUN 32, creatinine 7.0. Hemoglobin 10.2. Echocardiogram with LVEF 70% and minimal pericardial effusion. IMPRESSION: 1. Hypotension. Persistent. Appreciate the input of the team. May require left heart catheterization. 2. End-stage renal disease. She will have her routine dialysis today, but we will watch her blood pressure carefully to avoid severe hypotension. This will likely limit her ultrafiltration. 3. Anemia. We will dose with erythropoietin. Her hemoglobin is stable and in target. cc: Nicolas Gagnon MD
[2017-03-19] MEDS: ZOFRAN IV PRN (10:01)
[2017-03-19] MEDS: NORCO-10 PO PRN ×2 (10:23→23:52)
[2017-03-19] MEDS: HEPARIN SUBQ SCH (10:25)
[2017-03-19] MEDS: ALPHAGAN 0.2% OPHTH SOLN OPH SCH (10:25)
[2017-03-19] MEDS: AZOPT 1% OPHTH SUSP OPH SCH (10:25)
--- NOTE | 2017-03-19 10:33 | Diag Imaging Result Doc PS360 ---
GASTRIC EMPTYING - 03/19/2017 INDICATION: persistent nausea TECHNIQUE: 547 uCi of labeled solid food was ingested COMPARISON: None FINDINGS: There was essentially no gastric emptying over two hours. IMPRESSION: No gastric emptying. Compatible with severe gastroparesis. Electronically signed by Jordin Lind 03/19/2017 10:31 AM
[2017-03-19] MEDS: ASPIRIN EC PO SCH (10:34)
[2017-03-19] MEDS: SENSIPAR PO SCH (10:35)
[2017-03-19] MEDS: NEURONTIN PO SCH ×3 (10:35→20:28)
--- NOTE | 2017-03-19 12:15 | PROGRESS NOTE ---
DATE: 03/19/2017 Ms. Solano is awake, alert, attentive, bright, reasonably cheerful. There is no new neurologic finding on limited bedside exam. I discussed at some length with the patient and family present at the bedside the distinction between clinical stroke and imaging evidence of cerebral and cerebellar infarction. I believe that she has the latter, but not necessarily the former. I encouraged her to be aggressive with management of her risk factors for cerebrovascular ischemic disease. I do not have any new suggestion from neurologic standpoint today. cc: Riccardo Clifford III, MD MTDD
--- NOTE | 2017-03-19 12:16 | PROGRESS NOTE ---
DATE: 03/19/2017 SUBJECTIVE: Ms. Solano just returned from her gastric emptying study. She is feeling somewhat nauseous presently. She continues on a dopamine infusion. PHYSICAL EXAMINATION: She is afebrile. Heart rate of 60. Blood pressures have been somewhat low this morning in the 80s with overnights being in the 100s to 110s. Generally: She is in no acute distress. Cardiovascular: She sounds to be in a regular rate and rhythm. Somewhat distant heart sounds. Warm and well perfused lower extremities. Chest: Clear bilaterally. No increased work of breathing. Abdomen: Soft, nontender, nondistended. No obvious organomegaly. PERTINENT DATA: White count is 5.3, hematocrit 31, platelet count 129,000. Sodium 137, potassium 4.5, BUN 32, creatinine 7. ASSESSMENT: Relative hypotension. PLAN: Patient continues to have issues with hypotension which have not completely responded to fluids. She has had some issue tolerating her dialysis secondary to this. We may consider cardiac catheterization early next week to help delineate whether she has left main or possibly 3 vessel disease which could be limiting her ability to tolerate hemodialysis. cc: Jarvis Llanes MD
[2017-03-19] MEDS ORDERED: HEPARIN ONE (12:35)
[2017-03-19] MEDS ORDERED: NS 2,000 ML ONE (12:36)
--- NOTE | 2017-03-19 12:50 | Carotid Study ---
DATE: 03/18/2017 PROCEDURE: Carotid duplex imaging. REFERRING PHYSICIAN: Dr. White INTERPRETING PHYSICIAN: Dr. Norm Nina TECH: [place] INDICATIONS: Syncope. The exam was limited because the patient has a right internal jugular vein central line, the patient's size and position. OBSERVED DATA RIGHT LEFT Brachial Blood Pressure Carotid Pulse Bruits: Carotid/Sub DIAGRAM OF ULTRASOUND IMAGING R L RIGHT INT EXT INT EXT LEFT Keyur (cm/s) Keyur (cm/s) Subclavian 112/35 Subclavian 110/1 CCA Proximal 74/10 CCA Proximal 77/2 CCA Distal 68/15 CCA Distal 78/11 Bulb 81/12 Bulb 60/11 ICA Proximal 61/9 ICA Proximal 60/4 ICA Mid 66/11 ICA Mid 83/18 ICA Distal 73/14 ICA Distal 67/16 ECA 52/0 ECA 77/7 Vertebral Not visualized Vertebral 88/8 A ICA/CCA Ratio 0.99 ICA/CCA Ratio 1.06 % Stenosis 0 to 39 % Stenosis 0 to 39 FINDINGS: Limited exam due to views; however, there is no evidence of flow limiting lesion in bilateral carotid artery systems. cc: MD Janina Covarrubias MD
[2017-03-19] MEDS ORDERED: NS 1,000 ML ONE ×2 (13:37→15:54)
--- NOTE | 2017-03-19 15:00 | PROGRESS NOTE ---
DATE: 03/19/2017 SUBJECTIVE: The patient is resting comfortably in bed. She does complain of abdominal pain and intermittent nausea. She does report that she is a little more short of breath this morning. OBJECTIVE: Vital Signs: Temperature 97 degrees, blood pressure 85/51, heart rate 60, respirations 19, O2 saturations 98% on room air. General: Is a morbidly obese female lying in bed in no acute distress. Head: Normocephalic, atraumatic. Heart: S1, S2. Normal. Regular rate and rhythm. Lungs: Clear to auscultation bilaterally. No crackles. No wheezing. No rales. Abdomen: Positive bowel sounds. Soft, obese, nontender, nondistended. Extremities: No edema. No cyanosis. No calf tenderness. Neurologic: The patient is alert and oriented x3. LABS: White blood cell count 5.3, hemoglobin 10, hematocrit 31, platelets 129, 000. Sodium 137, potassium 4.5, chloride 91, CO2 26, BUN 32, creatinine 7, glucose 174, phosphorus 6.2, folate 4.6. Gastric emptying study shows severe gastroparesis. Blood cultures 1 bottle is growing gram-positive cocci. ASSESSMENT AND PLAN: 1. Hypotension. The patient remains on a dopamine drip. Etiology unclear. Heart catheterization planned for next week. 2. Bacteremia. One bottle of the set of blood cultures is growing gram- positive cocci. The patient is now receiving vancomycin after each dialysis session. 3. Severe gastroparesis. Will start the patient on IV Reglan before meals and at bedtime. GI is following. 4. End-stage renal disease. Management as per the tourist cabin keeper. 5. Diabetes mellitus type 2. Continue on sliding scale insulin. 6. Folate deficiency. Will start the patient on folic acid replacement. 7. Morbid obesity. Aware. 8. Anemia. Continue to monitor the patient's hemoglobin and hematocrit closely. 9. Mild thrombocytopenia. Will hold the patient's heparin today and follow the platelet count closely. cc: Janina White MD MTDD
[2017-03-19] MEDS: REGLAN IV SCH ×2 (17:05→20:27)
[2017-03-19] MEDS: ZOCOR PO SCH (20:28)
[2017-03-19] MEDS: LUMIGAN 0.01% OPH SOLUTION OPH SCH (20:28)
[2017-03-20] MEDS: NS 1,000 ML IV SCH (03:10)
[2017-03-20] MEDS: DUONEB (A & A) INH SCH ×6 (03:23→23:22)
[2017-03-20 05:52] LABS: HEMATOCRIT 29.8 % (37.0-47.0); HEMOGLOBIN 9.8 g/dL (12.0-16.0); MCH 35.9 PG (27-31); MCHC 32.9 g/dL (33-37); MCV 109.2 FL (81-99); RBC 2.73 XMIL (4.2-5.4)
[2017-03-20] MEDS: SODIUM CHLORIDE 0.9% INJ SCH (06:14)
[2017-03-20] MEDS: PROTONIX IV SCH (06:14)
[2017-03-20] MEDS: HUMULIN R SUBQ SCH ×4 (06:15→20:17)
[2017-03-20] MEDS: REGLAN IV SCH ×4 (06:16→20:15)
[2017-03-20 06:30] LABS: AGAP 11; ALBUMIN 3.8 g/dL (3.5-5.0); ALKALINE PHOSPHATASE 80 U/L (32-104); BUN 18 mg/dL (8-22); CALCIUM 7.2 mg/dL (8.8-10.2); CHLORIDE 95 mmol/L (98-107); COSMO 274; DIRECT BILIRUBIN < 0.20 mg/dL (0.00-0.20); GOT 11 U/L (10-30); GPT 13 U/L (10-36); POTASSIUM 3.7 mmol/L (3.5-5.1); SODIUM 134 mmol/L (136-145); TCO2 28 mmol/L (25-35); TOTAL BILIRUBIN 0.73 mg/dL (0.20-1.00)
--- NOTE | 2017-03-20 07:15 | Diag Imaging Result Doc PS360 ---
EXAM: CHEST-PORTABLE HISTORY: dyspnea TECHNIQUE: AP portable at 0500 COMMENT: The inspiration is less optimal than on 03/17/2017. Considering this, there has been no significant change. IMPRESSION: Poor inspiration. Electronically signed by Justin Jain 03/20/2017 7:12 AM
[2017-03-20] MEDS: AZOPT 1% OPHTH SUSP OPH SCH (08:56)
[2017-03-20] MEDS: ALPHAGAN 0.2% OPHTH SOLN OPH SCH (08:56)
[2017-03-20] MEDS: FOLIC ACID PO SCH (08:57)
[2017-03-20] MEDS: NEURONTIN PO SCH ×3 (08:57→20:16)
[2017-03-20] MEDS: SENSIPAR PO SCH (08:57)
[2017-03-20] MEDS: ASPIRIN EC PO SCH (08:57)
[2017-03-20] MEDS ORDERED: VITAMIN D PO SCH (09:00)
[2017-03-20] MEDS ORDERED: NS 500 ML ONE (11:25)
--- NOTE | 2017-03-20 16:44 | PROGRESS NOTE ---
DATE: 03/20/2017 CHIEF COMPLAINT: Weakness, back pain, abdominal cramps. REASON FOR CONSULTATION: Hypotension. SUBJECTIVE: Ms. Solano is resting in bed comfortably. She has no complaints at this time. She has been evaluated by Gastroenterology and Neurology. Gastroenterology is planning on doing some further testing once her coronary issue is clear. Neurologist feels that there was probably an episode of left cerebellar infarction at some point; however, there is no clearcut connection with her symptoms. Patient is not on dopamine anymore. OBJECTIVE: VITAL SIGNS: Her blood pressure is running somewhat on the low side. It was 165/56 in the morning and right now it has dropped to 92/40. Temperature is 96.5, pulse 64, respirations 12. GENERAL: She is arousable. Elderly, obese. Body mass index is 40.4. HEENT: She has a central line in the right side of her neck. CHEST: Diminished breath sounds at the bases. HEART: Sounds are distant, regular. I do not her a gallop or murmur. ABDOMEN: Obese. EXTREMITIES: Show no edema. Pulses are diminished. NEUROLOGIC: She responds appropriately. Follows commands. LABORATORY AND DIAGNOSTIC STUDIES: Blood work: Sodium 134, potassium 3.7, BUN 18, creatinine 4.7. Glucose is 166. Hemoglobin 9.8, hematocrit 29.8. Most recent chest x-ray done today shows poor inspiration. Telemetry shows activity of a pacemaker. IMPRESSIONS: 1. A patient who presented to the hospital with what appears to be hypotension and chest pain, near syncope, altered mental status. 2. Suspected coronary heart disease based on presence of extensive coronary calcifications on CT scan of the chest and prior cardiac catheterization that showed some disease. 3. End-stage renal disease, on hemodialysis. 4. Morbid obesity. 5. Sleep apnea syndrome. 6. Possible stroke. 7. Patient has a permanent pacemaker for sick sinus syndrome, bradycardia, and syncope. RECOMMENDATIONS: 1. Patient will undergo a heart catheterization to define the coronary anatomy. Dr. Llanes has explained this to the patient and family. At this time, there is a blood culture from 03/17/2017 growing Gram-positive cocci. We do not have any definite results yet. 2. Further intervention will depend on her clinical course. cc: Josh Garcia MD
--- NOTE | 2017-03-20 18:26 | PROGRESS NOTE ---
DATE: 03/20/2017 PRIMARY CARE PROVIDER: Hari Nguyen M.D. PRIMARY HOSPITALIST: Janina White M.D. PRIMARY SOCIAL SERVICE TECHNICIAN: Nicolas Gagnon M.D. PRIMARY BUSBOY: Jarvis Llanes M.D. SUBJECTIVE: The patient states she feels better today. She continues to have nausea and epigastric discomfort. She denies chest pain. Overnight, the team has been able to wean her dopamine pressor support. She notes mild dysphagia but otherwise is feeling significantly better relative to her admission. She was noted to have blood cultures positive for gram-positive cocci. Her antibiotic regimen has been adjusted. OBJECTIVE DATA: Remarkable for a blood pressure of 165/56, pulse 62, respiration 12, temperature of 96.5 degrees.HEENT: Unremarkable. There is no evidence of jaundice. Pulmonary exam: Lungs are clear to auscultation with normal expiratory effort. Cardiovascular exam: Reveals regular rate and rhythm with no murmurs, gallops, or rubs. Abdominal exam: Reveals normoactive bowel sounds. The abdomen is soft with moderate epigastric tenderness but no rebound or guarding. OBJECTIVE DATA: Reveals a hemoglobin of 9.8, with hematocrit of 29.8, and a white count of 5.84. She has 140,000 platelets. Sodium is 134, potassium 3.7, chloride 95, CO2 28, BUN 18, creatinine 4.7, with a glucose of 166. Calcium 7.2, phosphorus 4.1, total bilirubin 0.73, direct bilirubin less than 0.20, AST 11, ALT 13, alkaline phosphatase 80, total protein 7.0, and albumin 3.8. Her vitamin D was 5.6. Her folic acid on 03/18/2017 was 4.6. IMPRESSION: 1. Nausea with vomiting. 2. Epigastric pain. 3. Dysphagia. 4. Folic acid deficiency. 5. Vitamin D deficiency. 6. Central morbid obesity. RECOMMENDATION: 1. The patient is scheduled to undergo a cardiac catheterization next week to assess her cardiac status. We will defer any endoscopic intervention until she has been cleared by Cardiology. 2. Once she is cleared, I recommend an EGD for further evaluation of epigastric pain, nausea and vomiting. 3. She reports new dysphagia. Therefore, I will check a modified barium swallow on Wednesday while awaiting the pending evaluation from Cardiology and clearance for additional intervention. 4. I agree with folate acid supplementation. 5. I agree with vitamin D supplementation. 6. Continue Protonix 40 mg q.12 hours. 7. Additional recommendations to follow based on her clinical course. cc: MD Hari Glasgow MD Katherine Takundwa, MD Reginald D. Gladish, MD Peter Johnson, MD MTDD
[2017-03-20] MEDS: HEPARIN SUBQ SCH (20:15)
[2017-03-20] MEDS: ZOCOR PO SCH (20:16)
[2017-03-20] MEDS: LUMIGAN 0.01% OPH SOLUTION OPH SCH (20:16)
[2017-03-21] MEDS: NORCO-10 PO PRN ×2 (00:46→21:44)
[2017-03-21] MEDS: NS 1,000 ML IV SCH (03:21)
[2017-03-21] MEDS: DUONEB (A & A) INH SCH ×6 (03:25→23:19)
[2017-03-21] MEDS: HEPARIN SUBQ SCH ×3 (04:32→21:32)
[2017-03-21] MEDS ORDERED: NS 500 ML IV SCH (05:00)
[2017-03-21] MEDS ORDERED: CHLORASEPTIC SPRAY MT PRN (05:47)
[2017-03-21 06:11] LABS: ALBUMIN 3.8 g/dL (3.5-5.0); POTASSIUM 4.1 mmol/L (3.5-5.1)
[2017-03-21] MEDS: PROTONIX IV SCH (06:16)
[2017-03-21] MEDS: SODIUM CHLORIDE 0.9% INJ SCH (06:16)
[2017-03-21] MEDS: REGLAN IV SCH ×4 (06:16→21:32)
[2017-03-21] MEDS: HUMULIN R SUBQ SCH ×4 (06:17→21:33)
[2017-03-21 06:45] LABS: CALCIUM 6.8 mg/dL (8.8-10.2)
[2017-03-21 06:48] LABS: HEMATOCRIT 26.9 % (37.0-47.0); HEMOGLOBIN 8.8 g/dL (12.0-16.0); MCH 35.6 PG (27-31); MCHC 32.7 g/dL (33-37); MCV 108.9 FL (81-99); MPV 10.2 FL (7.4-10.4); RBC 2.47 XMIL (4.2-5.4)
[2017-03-21] MEDS ORDERED: CALCIUM GLUCONATE 1 GM in NS 50 ML IV ONE (06:55)
[2017-03-21] MEDS: NEURONTIN PO SCH ×3 (08:36→21:32)
[2017-03-21] MEDS: SENSIPAR PO SCH (08:36)
[2017-03-21] MEDS: ASPIRIN EC PO SCH (08:36)
[2017-03-21] MEDS: FOLIC ACID PO SCH (08:36)
[2017-03-21] MEDS: ALPHAGAN 0.2% OPHTH SOLN OPH SCH (08:37)
[2017-03-21] MEDS: AZOPT 1% OPHTH SUSP OPH SCH (08:37)
--- NOTE | 2017-03-21 11:34 | Diag Imaging Result Doc PS360 ---
EXAM: NECK W/O CONTRAST HISTORY: swelling TECHNIQUE: CT of the neck without contrast COMMENT: The left maxillary sinus is nearly completely opacified. There is some fluid in both sphenoid sinuses. The nasopharynx is unremarkable in appearance. The salivary glands are symmetrical in appearance. The epiglottis is not enlarged. There is some prominence of the palatine tonsils. The larynx and trachea are unremarkable in appearance. There is no evidence of significant adenopathy. The visualized portion of the chest is unremarkable. There are hypertrophic degenerative disc changes in the cervical spine. IMPRESSION: Left maxillary sinusitis, bilateral sphenoid sinusitis. The possibility of pharyngitis cannot be excluded. Electronically signed by Justin Jain 03/21/2017 11:32 AM
[2017-03-21] MEDS ORDERED: MERREM 500 MG in NS 50 ML IV SCH (13:00)
--- NOTE | 2017-03-21 14:03 | PROGRESS NOTE ---
DATE: 03/21/2017 CHIEF COMPLAINT: Near syncope. SUBJECTIVE: Ms. Solano is sitting upright today in a chair. She is not having any complaints of syncope or pains. She is just slightly dyspneic, that is a chronic feature for her. OBJECTIVE: Blood pressure now is 100/55, temperature 96.2, pulse 69, respirations 19. She is awake, alert and oriented, in no distress. Morbidly obese, weighs 259 pounds, BMI is 40.7. HEENT: She has a peculiar expression on her face, almost as in hypothyroid. Of note, her TSH was checked, and it was normal. She does have a central line in the right side of the neck. Chest shows bilateral end expiratory rhonchi and wheezing. Heart sounds are regular and rhythmic, distant. No gallop or murmur. Extremities showed trace edema. Neurologic: She follows commands, moves all 4 extremities. Abdomen is obese. No hepatomegaly is noted. DIAGNOSTIC DATA: Sodium is 137, potassium 4.1, BUN is 29, creatinine 6.6. IMPRESSION: 1. The patient presented with near syncope and hypotension. She is better now. 2. Chronic obstructive pulmonary disease. 3. Bacteremia. She is growing Staphylococcus capitis which is sensitive to oxacillin. 4. End stage renal disease on hemodialysis. 5. History of mild coronary artery disease in the past, nonobstructive. 6. History of sick sinus syndrome, bradycardia and syncope, status post permanent pacemaker. RECOMMENDATIONS: At this point in time, the patient seems to be stable. We will continue present therapy, and we may proceed with a heart catheterization at some point to exclude severe coronary artery disease. We will see how she does over the next few days. Thank you again for the opportunity to participate in her evaluation. cc: Josh Garcia MD
[2017-03-21] MEDS: ZOSYN 2.25 GM/NS 2.25 GM/50 ML IVPB IV SCH ×2 (19:25→23:42)
[2017-03-21] MEDS: FLONASE NAS SCH ×2 (19:25→21:32)
--- NOTE | 2017-03-21 19:25 | CONSULTATION ---
DATE OF CONSULTATION: 03/21/2017 CONCLUSION: Dr. White has asked me to see the patient about a positive blood culture for Staphylococcus capitis. Two blood cultures were drawn, only 1 of which grew the Staphylococcus capitis. I think most likely this represents a contaminant; however, it is a little bit disconcerting in that the patient does dialysis which could be a place where she became bacteremic; but again, with just 1 blood culture positive out of 2, I think it is a contaminant/ the patient does have fairly severe sinusitis. The CT scan shows sinusitis in the left maxillary and bilateral sphenoid sinuses. RECOMMENDATIONS: The patient already is on vancomycin. I think that is reasonable to use that for the patient's sinusitis, but as mentioned above, I do not think she needs treatment for the positive blood culture. Also, I have put the patient on Zosyn rather than meropenem and because I would like to try to save the carbapenem antibiotics which meropenem is. I would like to reserve those for the extended spectrum beta lactamase producing organisms or some other unusual reason. I have also started the patient on Flonase. DISCUSSION: I was unable to get a history from the patient. She was admitted to the hospital with an altered mental status. She has required dopamine for her blood pressure. Her CBC shows a white count of 4940, hemoglobin 8.8, and platelet count 132,000/ patient's creatinine is 6.6, GFR is 7. Hepatitis panel was nonreactive. CT scan of the neck showed left maxillary and bilateral sphenoid sinusitis. 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 PAST SURGICAL HISTORY: Positive for pacemaker placement, cholecystectomy, hysterectomy, rotator cuff repair. The patient has had AV fistula put in both arms. The 1 in the right arm is functional. The 1 in the left arm is not. The patient has had cataract surgery and another surgery in the right eye. She has had placement of a pacemaker. SOCIAL HISTORY: The patient does not smoke cigarettes, drink alcoholic beverages or abuse drugs. ALLERGIES: Adhesive tape, hydrochlorothiazide, morphine, valsartan. HOME MEDICATIONS: Simvastatin. Renvela. Protonix. Moxifloxacin eyedrops. Lopressor. Insulin. Boniva. Hydrocodone. Gabapentin. Epogen. Sensipar. Symbicort. FAMILY HISTORY: Positive for end-stage renal disease, breast cancer, diabetes and hypertension. PHYSICAL EXAMINATION: Vital Signs: Temperature is 96.8 degrees, pulse 67, respirations 20, blood pressure 104/66. The patient's weight is listed as 259 pounds. General: This is an obese, elderly female. She appears to be somewhat dyspneic even at rest. Head, eyes, ears, nose, and throat: She can hear my spoken words and see near objects. No drainage noted from the nose or ears. Neck: No meningismus. Extremities: The patient has a functioning AV fistula in her right arm and a nonfunctioning one in the left arm. Thorax: Patient has a pacemaker present on the right side which is very difficult for me to feel because of the patient's large size. Lungs: Clear to auscultation. Cardiovascular: Heart rate is regular. The patient has bilateral leg edema. Abdomen: Soft and nontender. Neurologic: Patient is awake. She can move her extremities. There was no tremor. Her sensation was intact to touch. Her memory as regarding her medical history was very poor. I was unable to obtain a review of systems from the patient as well. cc: Jeffrey Alicea MD
--- NOTE | 2017-03-21 19:28 | PROGRESS NOTE ---
DATE: 03/21/2017 SUBJECTIVE: The patient is asleep in the chair and had just dozed off. She is feeling much better according to the nursing staff. She complained of dysphagia and mild epigastric pain yesterday. She awaits a modified barium swallow tomorrow. Her endoscopic evaluation has been put on hold pending cardiac catheterization. Therefore, we will await the modified barium swallow results tomorrow. Our recommendation is to continue her current management at this time from a GI perspective. She is currently receiving Reglan for the severe gastroparesis and Protonix for the gastroesophageal reflux disease and dyspepsia. cc: MD Janina Glasgow MD Reginald D. Gladish, MD Kirk L. Jackson, MD Peter Johnson, MD
[2017-03-21] MEDS: ZOCOR PO SCH (21:32)
[2017-03-21] MEDS: LUMIGAN 0.01% OPH SOLUTION OPH SCH (21:32)
[2017-03-22] MEDS: DUONEB (A & A) INH SCH ×6 (03:28→23:45)
--- NOTE | 2017-03-22 03:57 | PROGRESS NOTE ---
DATE: 03/20/2017 SUBJECTIVE: The patient complains of difficulty with swallowing. She also complains of some mild shortness of breath. The patient is off of the dopamine drip. OBJECTIVE: Vital Signs: Temperature 96 degrees, blood pressure 165/56, heart rate 62, respirations 18, O2 saturations 100% on 1 L nasal cannula. General: This is a morbidly obese female lying in bed in no acute distress. Head: Normocephalic, atraumatic. Heart: S1, S2. Normal. Regular rate and rhythm. Lungs: Clear to auscultation bilaterally. No crackles. No rales. No rhonchi. Abdomen: Positive bowel sounds. Soft. Mild tenderness in the epigastric region. Extremities: No edema. No cyanosis. No calf tenderness. Neuro: The patient is alert and oriented x3. No focal neurologic deficits noted. LABS: White blood cell count 5.8, hemoglobin 9.8, hematocrit 29, platelets 140,000, sodium 134, potassium 3.7, chloride 95, CO2 28, BUN 18, creatinine 4.7, glucose 166, calcium 7.2. ASSESSMENT AND PLAN: 1. Syncope with intermittent chest pain. The patient will be undergoing a left heart catheterization this coming week. Further management as per the oracle manufacturing consultant. 2. Hypotension. Resolved. The patient is now off of the dopamine drip. 3. Severe gastroparesis. Continue on Reglan before meals and at bedtime. 4. Abdominal pain with dysphagia. GI is following. The patient will likely require endoscopy once she is cleared from a cardiac standpoint. 5. Uncontrolled insulin-dependent diabetes mellitus. Continue on sliding scale insulin. 6. Morbid obesity. Aware. 7. Bacteremia. So far only 1 bottle of the blood cultures are growing positive cocci. Will await the final culture results. Continue on vancomycin after each dialysis session. 8. End-stage renal disease. Management as per the breaking machine operator. 9. Obstructive sleep apnea. Aware. 10. Folate deficiency. Continue on folic acid replacement. 11. Vitamin D deficiency. The patient has been started on vitamin D replacement. 12. Deep vein thrombosis prophylaxis. Will start the patient on heparin. cc: Janina White MD
--- NOTE | 2017-03-22 03:57 | PROGRESS NOTE ---
cc: Janina White MD MTDD
--- NOTE | 2017-03-22 03:58 | PROGRESS NOTE ---
DATE: 03/21/2017 SUBJECTIVE: The patient is resting comfortably in the chair. She states that she is no longer having nausea, she has been able to tolerate her diet. She denies having any chest pain. OBJECTIVE: Vital Signs: Temperature 96.2 degrees, blood pressure 100/55, heart rate 69, respirations 19, O2 saturations 97% on 1 L nasal cannula. General: This is a morbidly obese female sitting up in a chair. Head: Normocephalic, atraumatic. Heart: S1, S2. Normal. Regular rate and rhythm. Lungs: Clear to auscultation bilaterally. No crackles. No rales. Abdomen: Positive bowel sounds. Soft, obese, nontender, nondistended. Extremities: No edema. No cyanosis. No calf tenderness. Neurologic: The patient is alert and oriented x3. No focal neurologic deficits noted. LABS: White blood cell count 4.9, hemoglobin 8.8, hematocrit 26, platelets 132, 000. Sodium 137, potassium 4.1, chloride 96, CO2 26, BUN 29, creatinine 6.6, glucose 181, calcium 6.8, phosphorus 4.2. Neck CT shows left maxillary sinusitis, bilateral sphenoid sinusitis and possible pharyngitis. ASSESSMENT AND PLAN: 1. Syncope. The patient will be undergoing a left heart catheterization this coming week. The patient has had no further syncopal episodes while hospitalized. 2. Hypotension. Stable. The patient no longer requires dopamine. Will continue to monitor closely. 3. Maxillary and sphenoid sinusitis and pharyngitis. Will start the patient on Merrem. 4. Bacteremia secondary to Staphylococcus capitis. The patient has a central line in the right internal jugular vein. Will await further recommendations from ID regarding antibiotic therapy. Continue on vancomycin after each dialysis session. 5. Gastroparesis. Improved. Continue on Reglan before meals and at bedtime. 6. End-stage renal disease. Management as per the quality engineering manager. 7. Morbid obesity. Aware. 8. Folate deficiency. Continue on folic acid replacement. 9. Vitamin D deficiency. Continue on vitamin D replacement. 10. Dysphagia and abdominal pain. The patient will likely require endoscopy after obtaining cardiac clearance. GI is following. 11. Anemia. The patient's hemoglobin and hematocrit are little bit lower. Will defer to the quality engineering manager regarding usage of Epogen. 12. Deep vein thrombosis prophylaxis. Continue on heparin. cc: Janina White MD MTDD
[2017-03-22] MEDS: HEPARIN SUBQ SCH ×3 (04:28→21:03)
[2017-03-22] MEDS: REGLAN IV SCH ×4 (06:01→18:44)
[2017-03-22] MEDS: HUMULIN R SUBQ SCH ×4 (06:01→21:03)
[2017-03-22] MEDS: PROTONIX IV SCH (06:01)
[2017-03-22] MEDS: SODIUM CHLORIDE 0.9% INJ SCH (06:01)
[2017-03-22] MEDS: ZOSYN 2.25 GM/NS 2.25 GM/50 ML IVPB IV SCH ×3 (06:15→18:45)
[2017-03-22 06:23] LABS: HEMATOCRIT 27.5 % (37.0-47.0); HEMOGLOBIN 9.1 g/dL (12.0-16.0); MCH 36.7 PG (27-31); MCHC 33.1 g/dL (33-37); MCV 110.9 FL (81-99); RBC 2.48 XMIL (4.2-5.4)
[2017-03-22 07:09] LABS: POTASSIUM 4.4 mmol/L (3.5-5.1)
[2017-03-22] MEDS ORDERED: NS 2,000 ML MISC PRN (07:56)
[2017-03-22] MEDS ORDERED: HEPARIN IV PRN (07:56)
[2017-03-22] MEDS ORDERED: TIGHT: 0.2 ML/HR MISC PRN (07:56)
[2017-03-22] MEDS: ASPIRIN EC PO SCH (08:42)
[2017-03-22] MEDS: ALPHAGAN 0.2% OPHTH SOLN OPH SCH (08:42)
[2017-03-22] MEDS: AZOPT 1% OPHTH SUSP OPH SCH (08:44)
[2017-03-22] MEDS: FLONASE NAS SCH ×2 (08:44→21:06)
[2017-03-22] MEDS: FOLIC ACID PO SCH (08:44)
[2017-03-22] MEDS: SENSIPAR PO SCH (08:45)
[2017-03-22] MEDS: NEURONTIN PO SCH ×3 (08:45→21:01)
[2017-03-22] MEDS ORDERED: CALCIUM GLUCONATE 1 GM in NS 50 ML IV ONE (09:00)
--- NOTE | 2017-03-22 10:47 | PROGRESS NOTE ---
DATE: 03/22/2017 SUBJECTIVE: Patient is sitting up on the side of the bed. She is waiting to go for a barium swallow. OBJECTIVE: Vital Signs: Temperature 97.8 degrees, pulse 64, respiratory rate 14, blood pressure 83/54. Intake 190 mL. Output not measured. Physical Examination: General: This is an elderly female, sitting up on the side of the bed. She is awake and alert, in no acute distress. HEENT: Normocephalic, atraumatic. Her oral mucosa is moist. CHRISTINA. Conjunctivae pink. Neck: Supple. Trachea midline. No JVD. Cardiovascular: Regular rate and rhythm. No murmur or gallop. Pulmonary: Equal excursion. She had some scattered rhonchi bilaterally. Abdomen: Soft, obese. Positive bowel sounds. : Not inspected. She has minimal void with hemodialysis assist. Extremities: No clubbing, cyanosis, or edema. Integumentary: Skin is warm and dry otherwise. Lab Data: WBC of 5.1, hemoglobin 9.1. Sodium 139, potassium 4.4, CO2 27, creatinine 8.1, albumin 4, calcium 7. ASSESSMENT AND PLAN: 1. End-stage renal disease management. Today is her routine dialysis day. We will plan to dialyze 2 K bath/UF to dry weight, 4 hour treatment. We have had issues with hypotension and this may limit our ultrafiltration goals. 2. Hypotension, followed by primary, cardiology. They plan at some point to proceed with a heart catheterization to exclude coronary artery disease. 3. Electrolytes, acid-base balance, anemia. These have been stable. See above for plan. Dictated by CHERISE Rocha for Nicolas Gagnon MD Patient seen, data reviewed, discussed with Javier Taylor on 03/22/17. I agree with the above assessment and plan of care. cc: Nicolas Gagnon MD [facility]
[2017-03-22] MEDS ORDERED: HEPARIN ONE (11:16)
[2017-03-22] MEDS ORDERED: NS 2,000 ML ONE (11:16)
--- NOTE | 2017-03-22 11:48 | PROGRESS NOTE ---
DATE: 03/22/2017 SUBJECTIVE: Patient has no complaints. OBJECTIVE: Vital Signs: Blood pressure is 120s/70s, heart rate 64, respiratory rate 14, temperature 97.8 degrees, 100% on room air. Cardiovascular: Regular rate and rhythm. Pulmonary: Bilateral breath sounds clear to auscultation. GI: Soft, nontender, and nondistended. Bowel sounds were positive. Extremities: No clubbing or cyanosis. Lymphatics: No peripheral edema. Neurological: Examination was nonfocal. She does appear to be a little bit somnolent. Neck: Her central line in her right neck appears to be stable. Laboratory Data: White count is 5, hemoglobin and hematocrit 9 and 27, platelets 142,000. Calcium 7, creatinine 8.1, albumin 4. PROBLEM LIST: 1. Syncope. She is undergoing cardiac catheterization workup per cardiology this week. I am not exactly sure when. 2. Hypotension, that has resolved. She is off dopamine. 3. Sinusitis. I think she is off Merrem. She is on vancomycin and Zosyn I think per infectious disease recommendations. 4. End-stage renal disease. She is on dialysis per renal service. 5. Morbid obesity. Aware. 6. Dysphagia. Gastroenterology is monitoring. She had a modified speech study today. Planning for EGD once she has had cardiac clearance. That will depend on the cardiac catheterization results. 7. Anemia, appears to be stable. Epogen is per renal service. 8. Hypocalcemia. She has been supplemented. I will resume her sevelamer and she is already on Sensipar. We will follow. 9. Bacteremia. She has 1 out of 2 positive blood cultures for Staphylococcus capitis which infectious disease feels is a contaminant. She does have a central line though and concern over infection because she is on dialysis. At this point, she is on vancomycin so we will continue to follow. cc: Adrian Romano MD
[2017-03-22] MEDS: CALTRATE 600 + D PO SCH (12:12)
--- NOTE | 2017-03-22 12:22 | Diag Imaging Result Doc PS360 ---
BA SWALLOW W/VIDEO SPEECH THER - 03/21/2017 INDICATION: dysphagia, n/v, epigastric pain, gastroparesis TECHNIQUE: Total fluoroscopy time was 36 seconds. 157 images were obtained. COMPARISON: None FINDINGS: While swallowing thin liquids and pureed solid consistencies, there was mild laryngeal penetration. However there is no aspiration. There is extremely heavy degenerative osteophyte formation at the anterior cervical spine involving all levels from C2-C6. In maximum width, This is almost as wide as the vertebral bodies themselves. No significant delay in clearance of the hypopharynx however. The esophagus was also evaluated. There is some mild presbyesophagus but no significant delay in clearance. IMPRESSION: 1. Mild penetration but no aspiration. 2. Mild presbyesophagus. Electronically signed by Jordin Lind 03/22/2017 12:19 PM
--- NOTE | 2017-03-22 15:47 | PROGRESS NOTE ---
DATE: 03/22/2017 SUBJECTIVE: The patient has no complaints of any chest pain. No shortness of breath. PHYSICAL EXAMINATION: Vital signs: Afebrile, heart rate is 67, blood pressure 129/67. General: No acute distress. Cardiovascular: She is in a regular rate and rhythm. No murmurs. No S3. She has no lower extremity edema. Chest: Clear bilaterally. No increased work of breathing. Abdomen: Soft, nontender. PERTINENT DATA: White count 5.1, hematocrit 27.5, platelet count 142,000. Sodium 139, potassium 4.4, BUN 39, creatinine 8.1. ASSESSMENT: Syncope, in the setting of a hemodialysis, along with hypotension. PLAN: The patient seems to be doing much better. She is off the dopamine. Certainly, this could be volume related; however, this has been somewhat refractory. We will plan on cardiac catheterization tomorrow to delineate her coronary anatomy and ensure she does not have left main or 3-vessel disease, which could be causing these spells. We will try to go from the left upper extremity, as the patient has a right upper extremity hemodialysis access, as well as significant obesity, making her a higher risk for bleed from the groin. cc: Jarvis Llanes MD
--- NOTE | 2017-03-22 16:13 | PROGRESS NOTE ---
DATE: 03/22/2017 PRESENT ILLNESS: The patient had a positive blood culture for Staph capitis. This, as mentioned above, I think is a contaminant and does not require antibiotic therapy. The patient was seen on CT scan, however, to have sinusitis in the left maxillary and bilateral sphenoid sinuses. MEDICATIONS: The patient currently is receiving vancomycin and Zosyn. PHYSICAL EXAMINATION: Vital Signs: Temperature is 97.2 degrees, pulse 67, respiratory rate is 24, blood pressure is 129/67. General: This is a chronically-ill, obese female. She is in no acute distress. Lungs: Clear to auscultation. Cardiovascular: Heart rate is regular. Thorax: The patient has a right-sided pacemaker in place. Neck: There is an internal jugular catheter in place. Extremities: The right arm has an AV fistula, through which she is being dialyzed. LAB AND RADIOLOGY: CBC-WBC 5.1, hgb 9.1, platelets 142K. No new radiographic study. ASSESSMENT AND PLAN: The plan now is to continue the antibiotics for the patient's sinusitis. The antibiotics are vancomycin and Zosyn. No antibiotic therapy is indicated for the patient's Staphylococcus capitis-positive blood culture. COMORBIDITIES: 1. End-stage renal disease, on hemodialysis. 2. Diabetes mellitus. 3. Hyperlipidemia. 4. Asthma. 5. Atrioventricular block, requiring a pacemaker. cc: Jeffrey Alicea MD MTDD
[2017-03-22] MEDS: ZOCOR PO SCH (21:02)
[2017-03-22] MEDS: NORCO-10 PO PRN (21:02)
[2017-03-22] MEDS: LUMIGAN 0.01% OPH SOLUTION OPH SCH (21:10)
[2017-03-23] MEDS: ZOSYN 2.25 GM/NS 2.25 GM/50 ML IVPB IV SCH ×3 (00:56→13:51)
[2017-03-23] MEDS: DUONEB (A & A) INH SCH ×4 (03:25→15:30)
[2017-03-23] MEDS: NORCO-10 PO PRN ×2 (04:31→13:28)
[2017-03-23] MEDS: HEPARIN SUBQ SCH ×2 (04:33→15:29)
[2017-03-23] MEDS: PROTONIX IV SCH (06:05)
[2017-03-23 06:28] LABS: HEMATOCRIT 29.2 % (37.0-47.0); HEMOGLOBIN 9.4 g/dL (12.0-16.0); MCH 36.3 PG (27-31); MCHC 32.2 g/dL (33-37); MCV 112.7 FL (81-99); MPV 9.9 FL (7.4-10.4); RBC 2.59 XMIL (4.2-5.4)
[2017-03-23 06:41] LABS: ALBUMIN 4.2 g/dL (3.5-5.0); CALCIUM 7.8 mg/dL (8.8-10.2); POTASSIUM 4.1 mmol/L (3.5-5.1)
[2017-03-23] MEDS: HUMULIN R SUBQ SCH ×2 (07:03→13:51)
[2017-03-23 08:08] VITALS: BP 146/71
[2017-03-23] MEDS: AZOPT 1% OPHTH SUSP OPH SCH (08:28)
[2017-03-23] MEDS: FLONASE NAS SCH (08:28)
[2017-03-23] MEDS: SENSIPAR PO SCH (08:28)
[2017-03-23] MEDS: ALPHAGAN 0.2% OPHTH SOLN OPH SCH (08:28)
[2017-03-23] MEDS: REGLAN IV SCH ×2 (08:29→13:52)
[2017-03-23] MEDS: FOLIC ACID PO SCH (08:29)
[2017-03-23] MEDS: NEURONTIN PO SCH ×2 (08:29→15:30)
[2017-03-23] MEDS: ASPIRIN EC PO SCH (08:29)
[2017-03-23] MEDS: CALTRATE 600 + D PO SCH (08:29)
[2017-03-23 09:38] LABS: INR 1.04; PROTIME 10.9 Seconds (9.2-11.7); PTT 29.5 Seconds (22.0-36.0)
[2017-03-23] MEDS ORDERED: HEPARIN 1000 UNITS/NS 2,000 UNIT/1,000 ML IV.SOLN ONE (10:42)
--- NOTE | 2017-03-23 10:56 | PROGRESS NOTE ---
DATE: 03/23/2017 SUBJECTIVE: Today, Ms. Solano refers to be doing a lot better. Denies any chest pain or shortness of breath. Ms. Solano is awaiting a left heart catheterization today. OBJECTIVE: Vital Signs: Blood pressure is 146/71, pulse of 71, respirations 18 , temperature 96.5 degrees. General: Ms. Solano is a 76-year-old female, morbidly obese. She is sitting up in a chair, and she was actually dozing off during the interview. Chest: Air entry is bilaterally reduced. A few bibasilar crepitations. Cardiovascular: Regular rate and rhythm. Chest wall: There is a right-sided pacemaker generator felt on the anterior chest wall on the right side. Abdomen: Soft, distended, but nontender. Extremities: No pedal edema. CONTINUOUS IMPROVEMENT FACILITATOR: The patient is awake, alert, oriented x4. There is no focal neurological deficit. LABORATORY DATA: Reviewed. CBC is unremarkable. Chemistry consistent with end -stage renal disease. IMAGING: There are not any new imaging studies. ASSESSMENT: 1. Syncope with hypotension during dialysis. Troponins were elevated. There is a suspicion that the patient could potentially have an underlying coronary artery disease. She is pending a left heart catheterization today. 2. Pansinusitis. The patient is currently on antibiotics, and is being followed up by Dr. Alicea. 3. End-stage renal disease, on hemodialysis. 4. Pacemaker. 5. Vitamin D deficiency. The patient is on supplements. 6. Morbid obesity. 7. Suspected sleep apnea and possible obesity hypoventilation syndrome. Today, Ms. Solano is clinically stable, is pending a left heart cath today, after which we will transfer her to the medical floor. I think she has very bad sleep apnea. We will use continuous positive airway pressure machine here in the hospital, and the patient is advised to follow up with cement finisher helper to make a formal diagnosis of the same. We will do an ABG to make sure she does have chronic respiratory acidosis. DISPOSITION: Will start planning on this once the patient has the left heart cath done. cc: Senthil Glover MD MTDD
[2017-03-23] MEDS ORDERED: ANESTHESIA PB SET 88 IN 5742 ONE (11:15)
[2017-03-23] MEDS ORDERED: NS 1,000 ML ONE (11:15)
[2017-03-23] MEDS ORDERED: CLAVE TWINSITE 32 IN 11959 ONE (11:15)
[2017-03-23] MEDS ORDERED: DILAUDID ONE (11:25)
[2017-03-23] MEDS ORDERED: VERSED ONE (11:25)
--- NOTE | 2017-03-23 13:05 | CARDIAC CATH REPORT ---
PROCEDURE NAME: - INDICATION: Syncope and hypotension with hemodialysis. PROCEDURES PERFORMED: 1. Left heart catheterization. 2. Selective coronary angiography. 3. Left subclavian artery angiography. PROCEDURE IN DETAIL: Ms. Solano was brought to [facility] at the catheterization laboratory in fasting state. Informed consent was obtained. Prepped in usual fashion. Initial attempts were made at the left radial artery catheterization. The 5-Emirati sheath was placed without difficulty in the left radial artery. We advanced the catheter and were unable to pass the catheter past the point of the axilla. Arteriograms in that area demonstrated occlusion of the artery at that site. We then abandoned that site and prepped and draped the right femoral artery. A 5-Emirati sheath was placed via modified Seldinger technique. Catheters were introduced and hemodynamic measurements made in the ascending thoracic aorta. Coronary angiography was performed in multiple views using JL3.5 and JR4 diagnostic catheters. Left heart catheterization was performed using the JR4. At the conclusion of the procedure, the TR band was left inflated in the left wrist after the sheath was removed with good hemostasis. For now, the right femoral sheath was left in place secondary to heparin being administered. ACTs are being checked. 5-10 mL of blood loss. 90 mL of IV contrast. No apparent complications. FINDINGS: 1. The left main has a distal 50% to 60% lesion. 2. Left anterior descending originates from the left main. The proximal vessel has mild luminal irregularities. The mid vessel has a complex severe calcified lesion involving a large diagonal branch taking off at that area as well. These are on the order of 80% to 90%. The distal left anterior descending has mild luminal irregularities. 3. Circumflex originates from the left main. There is a severe proximal lesion around 90% that is calcified in nature. In addition there is a very high OM1 with a proximal calcified 80% lesion. 4. Right coronary originates from the right coronary cusp. Patent proximal stents noted with diffuse mild luminal irregularities elsewhere. 5. Aortic blood pressure 160/63 with a mean of 101. 6. Left ventricle pressure is 161 over -2 with an LVEDP of 6. 7. Arteriogram of the left subclavian/axillary artery shows occlusion of this vessel near the axilla. ASSESSMENT: Ms. Solano is a 76-year-old black female with a history of end- stage renal disease and previous coronary disease. She is having issues with hemodialysis in that she is having hypotension and syncope. PLAN: Patient has multi-vessel disease involving her distal left main and mid LAD as well as the proximal circumflex. These do not appear to be amenable lesions for PCI. She will need evaluation for potential bypass. However, she is likely a poor surgical candidate given her comorbidities including morbid obesity as well as end-stage renal disease. cc: Jarvis Llanes MD MTDD
--- NOTE | 2017-03-23 13:40 | PROGRESS NOTE ---
DATE: 03/23/2017 SUBJECTIVE: She has not had any chest pain, and she has not had any more spells of loss of consciousness. She is not eating well because of her teeth. She has pain in the right heel. OBJECTIVE: Vital Signs: Blood pressure 146/71, heart rate 71, respiration 18, afebrile. Intake 1.3 L. Output 3.4 L. General: No acute distress. Skin: Warm and dry. HEENT: Conjunctivae are pink. Pupils are equal. Facial edema is present. Neck: Neck veins are not appreciated. Heart: Regular. Lungs: Have equal breath sounds. No crackles or wheezes. Abdomen: Soft, nontender. Bowel sounds are present. Extremities: Have no edema, clubbing, or cyanosis. The right heel has no redness or breakdown. IMPRESSION: 1. End-stage renal disease: She had her routine dialysis yesterday that was uncomplicated. 2. Poor intake: Will adjust her diet. 3. Nasal congestion: Will add Afrin and Flonase as needed. 4. Electrolytes/acid base in target. 5. Anemia: Stable but below target. We will continue erythropoietin. cc: Nicolas Gagnon MD
--- NOTE | 2017-03-23 13:49 | PROGRESS NOTE ---
DATE: 03/23/2017 SUBJECTIVE: The patient underwent a cardiac cath today for evaluation of her coronary artery disease after she presented with syncope and chest pain. Her clinical course has been remarkable for the diagnosis of severe gastroparesis. She also has epigastric pain and nausea with vomiting that is improved with IV PPI therapy. On swallow study, she was noted to have mild presbyesophagus and airway penetration with no aspiration of thin liquids as well as pureed solid consistencies. However, she underwent a cardiac cath today and has multivessel disease including a significant LAD lesion. Therefore, Cardiology has recommended that we not proceed with endoscopic evaluation of this patient given the risks benefits profile. Therefore, I recommend continuing conservative management. At this time, we will sign off. Thank you for allowing us participate in the care of this patient. cc: MD Hari Glasgow MD Reginald D. Gladish, MD Raphael K. Quansah, MD Peter Johnson, MD
[2017-03-23] MEDS ORDERED: ZOSYN 2.25 GM in NS 50 ML IV SCH ×2 (15:00→16:31)
[2017-03-23] MEDS ORDERED: LABETALOL IV ONE (15:31)
[2017-03-23] MEDS ORDERED: SODIUM BICARBONATE 8.4% ONE ×2 (15:59→17:15)
[2017-03-23] MEDS ORDERED: SOLU-MEDROL ONE (16:01)
[2017-03-23] MEDS ORDERED: BENADRYL ONE (16:01)
[2017-03-23] MEDS ORDERED: EPINEPHRINE SYRINGE ONE (17:15)
[2017-03-23] MEDS ORDERED: CORDARONE ONE (17:15)
[2017-03-23] MEDS ORDERED: CORDARONE 150 MG/D5W ONE (17:15)
--- NOTE | 2017-03-23 17:48 | DISCHARGE SUMMARY ---
ADMISSION DATE: 03/17/2017 DISCHARGE DATE: DATE OF : 03/23/2017 TIME OF : 1631 CONSULTATION DURING THIS ADMISSION: 1. Nephrology was consulted. Patient was seen by Dr. Gagnon. 2. Neurology was consulted. Patient was seen by Dr. Clifford. 3. GI was consulted. Patient was seen by Dr. Franco. 4. Cardiology was consulted. Patient was seen by Dr. Llanes. INVASIVE PROCEDURES DONE DURING THIS ADMISSION: Left heart catheterization was done by Cardiology today and result shows multivessel disease involving her distal left main and mid LAD as well as proximal circumflex. ADMISSION DIAGNOSES: 1. Syncope. 2. Hypotension. 3. Altered mental status. 4. Chest pain. Diagnoses at the time of 1. Cardiac arrest. 2. Coronary artery disease. Left heart catheterization shows significant triple vessel disease not amenable to intervention. 3. Suspected allergy reaction questionable to the contrast used during left heart catheterization. 4. Pansinusitis. 5. End-stage renal disease on hemodialysis. 6. Vitamin D deficiency. 7. Morbid obesity with suspected obesity hypoventilation syndrome. PRESENTING COMPLAINT: Chest pain. HISTORY OF PRESENTING COMPLAINT: Ms Solano 76-year-old female was discharged from the hospital late last month. Presented this time because of chest pain during dialysis. Blood pressures systolic was in the 70s. Patient was brought in for further medical care. Patient was admitted to the ICU. Nephrology was consulted. Patient was arranged for her regular dialysis schedule. Neurology was consulted for the altered mental status and GI was also consulted. There was even a plan to do endoscopy however that was aborted after the left heart catheterization result. Today patient was relatively stable. I saw her very early this morning. She was sitting in a chair. She was just ready for her left heart catheterization which was successfully done today, results it is in the chart consistent with severe coronary artery disease. Unfortunately when the patient came from the catheterization lab blood pressures were extremely high. We had ordered 20 mg of labetalol to be given but she did not get that before she was found to be unresponsive in bed. CPR was started at 1545. Multiple rounds of epinephrine a total of 12 amps of epinephrine was given during the entire code, 3 BICAPs were also given intermittently, 125 mg of Solu-Medrol and 50 mg of Benadryl was given for suspected contrast induced allergies. Airway was secured by anesthesia, 1 amp of calcium gluconate was given. Intermittently patient was found to have ventricular fibrillation so 300 mg of amiodarone was loaded and 150 was given at a separate time. Patient received 3 shocks in total due to shockable rhythm. Cardiology team was on was at the bedside during most part of the code. At 1630 a bedside echocardiogram was done because of persistently nonpalpable pulse and it reveals stunt heart with no activity. Patient was subsequently pronounced at 1631. Subsequently I had a meeting with the family members including the son and other family members who where here in the hospital and I told them about the unfortunate events. I had early on spoken to a daughter on the phone who is in [place] and I did notify her that the prognosis looked grim. At 1631 Ms Solano was pronounced and the family have been notified. cc: Senthil Glover MD MTDD
[2017-03-24] MEDS ORDERED: ASPIRIN EC PO SCH (09:00)
[2017-03-24] MEDS ORDERED: EPOGEN SUBQ SCH (09:00)
== END 2017-03-23 16:31 | disposition expired ==
LOC: ED 11:44 → ICU 15:03 → SUATTDRO 15:03
PROVIDERS: ATTEND Internal Medicine